=== PATIENT | female | born 1960 | race Caucasian/White ===

== ENCOUNTER 2017-03-21 12:06 | Inpatient (IN) ==
--- NOTE | 2017-03-21 10:17 | Discharge Summary ---
<Lucrecia Chaudhary E - Last Filed: 03/21/17 10:14> Date of Encounter: 03/21/17 - Discharge Diagnosis (1) Arthritis of left knee Priority: Primary Status: Acute (2) Hypertension Priority: Secondary Status: Chronic Qualifiers: Hypertension type: essential hypertension Qualified Code(s): I10 - Essential (primary) hypertension (3) Generalized anxiety disorder Priority: Secondary Status: Chronic (4) Depression Priority: Secondary Status: Chronic Qualifiers: Depression Type: unspecified Qualified Code(s): F32.9 - Major depressive disorder, single episode, unspecified (5) COPD (chronic obstructive pulmonary disease) Priority: Secondary Status: Chronic Qualifiers: COPD type: unspecified COPD Qualified Code(s): J44.9 - Chronic obstructive pulmonary disease, unspecified (6) Tobacco use Priority: Secondary Status: Chronic (7) History of intravenous drug use in remission Priority: Secondary Status: Chronic (8) Familial hyperlipidemia Priority: Secondary Status: Chronic - Discharge Medications Home Medications: Albuterol Sulfate [Albuterol Inhaler] 2 puff IH Q4HR PRN 03/21/17 [History] Amitriptyline [Elavil] 25 mg PO BID 03/21/17 [History] Aspirin Enteric Coated [Aspirin EC] 325 mg PO DAILY #30 tablet. 03/21/17 [Rx] Lisinopril [Zestril] 20 mg PO BID 03/21/17 [History] OxyCODONE Immed Rel [Roxicodone 5 MG] 5 - 10 mg PO Q6HR PRN #40 tablet 03/21/17 [Rx] Allergies/Adverse Reactions: Allergies Penicillins [PCN] Allergy (Verified 03/21/17 13:12) Hives lovastatin Adverse Reaction (Mild, Verified 03/21/17 13:20) "URINARY PROBLEMS" acetaminophen [From Vicodin] Adverse Reaction (Verified 03/21/17 13:22) Itching atorvastatin Adverse Reaction (Verified 03/21/17 13:20) Headache budesonide [From Symbicort] Adverse Reaction (Verified 03/21/17 13:20) Difficulty Breathing citalopram [From Celexa] Adverse Reaction (Verified 03/21/17 13:20) Anxiety Formoterol [From Symbicort] Adverse Reaction (Verified 03/21/17 13:20) Difficulty Breathing hydrocodone [From Vicodin] Adverse Reaction (Verified 03/21/17 13:22) Itching Primary care physician: Lou Wynne CNP - Patient Status Disposition: Home, Self-Care Condition: Good - Discharge Instructions Follow Up With: Lou Wynne CNP [Primary Care Provider] - - Hospital Course Hospital course: Ms. Bell is a 56 year old female - Time Spent with Patient Total time spent providing and/or coordinating discharge services: <Valdo Santoro - Last Filed: 03/22/17 06:46> Date of Encounter: 03/22/17 Time of Encounter: 06:46 - Discharge Diagnosis (1) Arthritis of left knee Priority: Primary Status: Acute (2) Hypertension Priority: Secondary Status: Chronic Qualifiers: Hypertension type: essential hypertension Qualified Code(s): I10 - Essential (primary) hypertension (3) Depression Priority: Secondary Status: Chronic Qualifiers: Depression Type: unspecified Qualified Code(s): F32.9 - Major depressive disorder, single episode, unspecified (4) COPD (chronic obstructive pulmonary disease) Priority: Secondary Status: Chronic Qualifiers: COPD type: unspecified COPD Qualified Code(s): J44.9 - Chronic obstructive pulmonary disease, unspecified (5) Tobacco use Priority: Secondary Status: Chronic (6) History of intravenous drug use in remission Priority: Secondary Status: Chronic (7) Familial hyperlipidemia Priority: Secondary Status: Chronic Primary care physician: Lou Wynne CNP - Patient Status Functional capacity at discharge: uses cane/walker Overall status at discharge: patient is progressing back to baseline - Hospital Course Hospital course: Ms. Bell is a 56 year old female Patient was seen this morning doing well without complaints. Afebrile vital signs stable. Operative extremity: Neurovascularly intact Dressing clean dry and intact Calves nontender Assessment and plan: Continue with postoperative care The patient had an uneventful postoperative course. They received antibiotics and physical therapy and were discharged in stable condition. There will follow -up in the office in 2 weeks. Aspirin DVT prophylaxis - Time Spent with Patient Total time spent providing and/or coordinating discharge services:
--- NOTE | 2017-03-21 12:14 | History & Physical Report ---
Date of Encounter: 03/21/17 Time of Encounter: 12:14 24 Hour HP Update - Instructions Instructions: If the History and Physical is less than 30 days old and was completed prior to A.M. admission and or procedure and has NOT been updated on calendar day of procedure please complete this update prior to performing procedure. - Update Patient reports changes in Medical Condition: No Changes in examination, assessment, or condition: No Changes in Medication: No Preop tests/diagnostics Reviewed: Yes Surgery Remains Indicated: Yes Consent for Planned Operative Procedure(s) Verified: Yes - Pre-Operative Checklist Preoperative Checklist Indicated: No Prophylactic Antibiotic Ordered: Yes Is VTE Prophylaxis Indicated?: Yes
[2017-03-21] MEDS ORDERED: Lidocaine -MPF 1% 2 ML VIAL ID ONE (12:23)
[2017-03-21] MEDS ORDERED: Clindamycin 900 MG/50 ML 900 MG/50 ML IV.SOLN IVPB ONE (12:23)
[2017-03-21] MEDS ORDERED: Albuterol 2.5 MG/3 ML NEBULIZER IH ONE (12:23)
[2017-03-21] MEDS ORDERED: Albuterol 2.5 MG/3 ML NEBULIZER ONE (12:28)
[2017-03-21] MEDS ORDERED: Ringers Solution, Lactated 1,000 ML IVC SCH ×2 (12:30→16:44)
--- NOTE | 2017-03-21 13:06 | Anesthesia Evaluation PreOp ---
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 03/21/17 [Rx] OxyCODONE Immed Rel [Roxicodone 5 MG] 5 - 10 mg PO Q6HR PRN #40 tablet 03/21/17 [Rx] Allergies Penicillins [PCN] Allergy (Verified 12/06/16 08:55) Hives - Meds/Allergy Pre-op Review Medications Reviewed: Yes Allergies Reviewed: Yes Beta Blockers on Current Med List: No Anesthesia Results - Labs Laboratory Tests 03/10/17 03/10/17 03/16/17 13:54 13:54 13:32 Hgb 13.5 Hct 41.1 Plt Count 235 PT 11.5 INR 1.1 APTT 32.2 Sodium 137 Potassium 4.0 Creatinine 0.99 - Imaging EKG: report reviewed (sr) Anesthesia Exam O2 Sat Height 1.65 m Height 1.65 m Height 1.65 m Weight 67.132 kg Weight 67.132 kg Weight 67.132 kg O2 Sat by Pulse Oximetry 97 O2 Sat by Pulse Oximetry 97 O2 Sat by Pulse Oximetry 92 Vital Signs Temp Pulse Resp BP Pulse Ox 99.1 F 92 16 155/82 92 03/21/17 12:34 03/21/17 12:34 03/21/17 12:34 03/21/17 12:34 03/21/17 12:34 Height: 1.65 Weight: 67 NPO (# of Hours): >8 - HEENT Pupil (Motor): Pupils equal, EOMI Mallampati: II Teeth: Edentulous Oral Opening: Greater than 3 - 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
[2017-03-21] MEDS ORDERED: *HR* Midazolam HCl 2 MG/2 ML VIAL ONE (13:25)
[2017-03-21] MEDS ORDERED: *HR* Propofol 200 MG/20 ML VIAL IVP ONE (13:25)
[2017-03-21] MEDS ORDERED: *HR* FentaNYL (PF) 100 MCG/2 ML VIAL ONE ×2 (13:25→14:50)
[2017-03-21] MEDS ORDERED: Ondansetron 4 MG/2 ML VIAL IVP PRN ×2 (13:47→16:44)
[2017-03-21] MEDS ORDERED: Dexamethasone 4 MG/ML VIAL ONE (13:53)
[2017-03-21] MEDS ORDERED: Ondansetron 4 MG/2 ML VIAL ONE (13:53)
[2017-03-21] MEDS ORDERED: Lidocaine -MPF 2% 2 ML VIAL ONE (13:53)
[2017-03-21] MEDS ORDERED: ROPIVACAINE HCL/PF 0.5% 30 ML VIAL ONE (14:01)
--- NOTE | 2017-03-21 14:30 | Anesthesia Procedures ---
Date of Encounter: 03/21/17 Time of Encounter: 14:31 Procedures: Anesthesia - Nerve Block Procedure Date: 03/21/17 Time: 14:28 Allergies/Adv Reactions: Allergies Penicillins [PCN] Allergy (Verified 03/21/17 13:12) Hives lovastatin Adverse Reaction (Mild, Verified 03/21/17 13:20) "URINARY PROBLEMS" acetaminophen [From Vicodin] Adverse Reaction (Verified 03/21/17 13:22) Itching atorvastatin Adverse Reaction (Verified 03/21/17 13:20) Headache budesonide [From Symbicort] Adverse Reaction (Verified 03/21/17 13:20) Difficulty Breathing citalopram [From Celexa] Adverse Reaction (Verified 03/21/17 13:20) Anxiety Formoterol [From Symbicort] Adverse Reaction (Verified 03/21/17 13:20) Difficulty Breathing hydrocodone [From Vicodin] Adverse Reaction (Verified 03/21/17 13:22) Itching Pre-op Diagnosis: oa left knee Surgical Procedure: left total knee Checklist: Correct Patient Identifier, Correct procedure, History checked Correct side: Left Blood Thinner: No Monitor Applied: EKG, BP, Pulse Oximetry Supplemental Oxygen via Nasal Cannula (L/min): 2 Sedation: Versed (mg): 2 Sedation: Fentanyl (mcg): 100 Indication: Post Op Analgesia Pre-op Neuro Deficits: No Block Type: Femoral (30cc 0.5% ropivicaine), Other (iPACK 20cc 0.25% bupivicaine ) Catheter placed: No Sterile Technique: Yes Ultrasound used: Yes Anatomy identified: Yes Visual spread of Local: Yes Neuro Stimulation: Yes Nerve Stimulator Range: 0.2 - 0.4 mA Blood on Needle Aspiration: No Smooth Injection of Local: Yes Pain with Injection of Local: No Prep: Chlorhexadine Needle: 22 x 50 mm Stimuplex (femoral), 21 x 100 mm Stimuplex (ipack) Local: 0.25% Bupivicaine w/Clonidine 20 mcg/cc, Ropivacaine Volume (cc): 50 Number of Attempts: 1 Complications: None/effective block Comments: peripheral nerve block for postoperative pain relief per dr duncan's orders
--- NOTE | 2017-03-21 15:11 | Orthopedic Operative Note ---
Date of procedure: 03/21/17 Pre-op diagnosis: Left knee arthritis Post-op diagnosis: same Procedure: Procedure: Left Total knee replacement Estimated blood loss: 350 cc Hardware: Arthrex Femur: 6 Tibia: 5 PS insert: 16 Patella: 34 Exam Under anesthesia: Varus alignment full flexion full extension no instability Procedural Notes: Grade 4 arthritic changes medial compartment grade 3 arthritic changes patellofemoral joint. Operative procedure: The patient was brought to the operating room and placed on the operating room table. After general anesthesia was administered the operative knee was examined. Findings were noted in the exam under anesthesia. The operative extremity was prepped and draped in sterile surgical fashion. The patient received IV antibiotics prior to skin incision. A standard midline incision was made centered over the patella. The incision was made through the skin and subcutaneous tissue. A medial parapatellar tendon approach was performed. Care was taken to preserve tissue along the medial aspect of the patella. And to protect the patella tendon. The deep MCL was released off the medial tibia. The infra patella fat pad was excised. Knee was brought into flexion. Patient noted to have grade 4 arthritic changes medial compartment grade 3 arthritic changes patellofemoral joint. The entry hole was made for the intramedullary femoral guide. The guide was seated in 6 degrees of valgus. Anterior cut was made followed by the distal cut. The ACL the PCL the medial and the lateral menisci were excised. The tibia was subluxed forward. The entry hole was made for the intramedullary tibial guide. Guide was seated to resect 2 mm off the more abnormal side. The knee was brought into flexion the distal femur was sized and a 6. The femoral guide was seated, the anterior cut was made followed by the posterior condylar cut, followed by the chamfer cuts. The finishing guide was seated the box cut was made and the lug holes were drilled. The tibia was sized a 5, the tibial tray was seated and prepared with the large drill followed by the fin cutter. Trial reduction revealed full extension no varus valgus instability with the appropriate 16 PS Manju. The patella was everted and cut was made at the level of the insertion of the quadriceps and patella tendon. The patella was sized 34 the guide was seated and the lug holes are drilled. Trial reduction revealed excellent patella tracking. All trial components were removed all bony surfaces were irrigated. The tibia was cemented first followed by the femur. The 16 PS Manju was seated and the knee was brought into full extension. The patella was cemented and held in place with the patellar holding clamp. After the cement had hardened, the knee sat for 2 minutes with a Betadine saline solution. The knee was then irrigated out with 2 L of pulse irrigation. The extensor mechanism was closed with #2 FiberWire suture and #2 PDS suture. The subcutaneous tissue was then irrigated and closed deep with #1 PDS suture superficially with 0 PDS suture and skin was closed with skin cecil. The patient was then placed in a sterile dressing and a postoperative brace extubated and transferred to recovery room in stable condition. Anesthesia: BLANCA Surgeon: Valdo Santoro Handyman: Lucrecia Chaudhary Condition: stable Disposition: PACU
[2017-03-21] MEDS ORDERED: *HR* HYDROmorphone 2 MG/ML SYRINGE ONE (15:25)
[2017-03-21] MEDS: *HR* HYDROmorphone (PF) 1 MG/ML SYRINGE IVP PRN ×3 (16:00→16:20)
[2017-03-21] MEDS ORDERED: *HR* Labetalol 20 MG/4 ML SYRINGE IVP ONE (16:16)
[2017-03-21 16:17] LABS: Hematocrit 37.3 % (35.3-44.9); Hemoglobin 12.2 g/dL (11.5-15.4)
--- NOTE | 2017-03-21 16:43 | Anesthesia Evaluation Post Op ---
Date of Encounter: 03/21/17 Time of Encounter: 16:42 - Vital Signs Vital Signs: Vital Signs/O2 Sat, Most Current Temp Pulse Resp BP Pulse Ox 99.2 F 77 14 157/93 92 03/21/17 16:34 03/21/17 16:34 03/21/17 16:34 03/21/17 16:34 03/21/17 16:34 - Lungs Lungs: Clear Ascult./Percussion - Airway Airway: Non-obstructed - Cardiovascular Regular Rate - Mental Status Mental Status: Alert & Oriented, Answers Appropriately - Pain Pain Scale: 4 Pain Scale used: Numeric (1 - 10) - Nausea Vomiting Nausea Vomiting: Not Present - Hydration Hydration: Tolerates oral liquids, Has not voided - Discharge PostOp Status: Transfer Patient to floor
[2017-03-21] MEDS ORDERED: Clindamycin 900 MG/50 ML 900 MG/50 ML IV.SOLN IVPB SCH (16:44)
[2017-03-21] MEDS ORDERED: *HR* OxyCODONE Immed Rel 5 MG TABLET PO PRN (16:44)
[2017-03-21] MEDS ORDERED: Naloxone 0.4 MG/ML INJ IVP PRN (16:44)
[2017-03-21] MEDS ORDERED: Temazepam 15 MG CAPSULE PO PRN (16:44)
[2017-03-21] MEDS ORDERED: Sennosides 8.6 MG TABLET PO PRN (16:44)
[2017-03-21] MEDS ORDERED: MOM Conc 10 ML UD.LIQ PO PRN (16:44)
[2017-03-21] MEDS: *HR* OxyCODONE Immed Rel 5 MG TABLET PO PRN ×2 (17:10→22:03)
[2017-03-21] MEDS: *HR* Enoxaparin 30 MG/0.3 ML SYRINGE SQ SCH (17:38)
[2017-03-21] MEDS ORDERED: *HR* Enoxaparin 30 MG/0.3 ML SYRINGE SQ SCH (18:00)
[2017-03-21] MEDS: Lisinopril 20 MG TABLET PO SCH (20:27)
[2017-03-21] MEDS: Clindamycin 900 MG/50 ML 900 MG/50 ML IV.SOLN IVPB SCH (20:28)
[2017-03-22] MEDS: *HR* OxyCODONE Immed Rel 5 MG TABLET PO PRN ×3 (02:24→10:55)
[2017-03-22] MEDS: Clindamycin 900 MG/50 ML 900 MG/50 ML IV.SOLN IVPB SCH (05:26)
[2017-03-22 05:45] LABS: Hematocrit 34.5 % (35.3-44.9); Hemoglobin 11.3 g/dL (11.5-15.4)
[2017-03-22 05:59] LABS: Calcium 9.5 mg/dL (8.6-10.8); Potassium 4.4 mEq/L (3.5-4.5)
[2017-03-22] MEDS: *HR* Enoxaparin 30 MG/0.3 ML SYRINGE SQ SCH (06:19)
[2017-03-22] MEDS ORDERED: Mag Hydrox/Al Hydrox/Simeth 30 ML UDC PO PRN (06:29)
--- NOTE | 2017-03-22 06:47 | Orthopedics Progress Note ---
Date of Encounter: 03/22/17 Time of Encounter: 06:47 - Assessment and Plan (1) Arthritis of left knee Current Visit: Yes Status: Acute (2) Hypertension Current Visit: Yes Status: Chronic Qualifiers: Hypertension type: essential hypertension Qualified Code(s): I10 - Essential (primary) hypertension (3) Depression Current Visit: Yes Status: Chronic Qualifiers: Depression Type: unspecified Qualified Code(s): F32.9 - Major depressive disorder, single episode, unspecified (4) COPD (chronic obstructive pulmonary disease) Current Visit: Yes Status: Chronic Qualifiers: COPD type: unspecified COPD Qualified Code(s): J44.9 - Chronic obstructive pulmonary disease, unspecified (5) Tobacco use Current Visit: Yes Status: Chronic (6) History of intravenous drug use in remission Current Visit: Yes Status: Chronic (7) Familial hyperlipidemia Current Visit: Yes Status: Chronic Subjective Interval history: Patient was seen this morning doing well without complaints. Afebrile vital signs stable. Operative extremity: Neurovascularly intact Dressing clean dry and intact Calves nontender Assessment and plan: Continue with postoperative care Hematocrit 34 discharged today Objective Vital signs: Vital Signs Temp Pulse Resp BP Pulse Ox 03/22/17 04:46 98 03/22/17 03:55 98.1 F 91 17 152/71 95 03/22/17 00:06 98.2 F 85 17 142/53 94 03/21/17 20:42 98.3 F 74 16 135/69 98 03/21/17 19:26 98.1 F 78 14 158/74 100 03/21/17 18:10 98.0 F 78 16 172/76 98 03/21/17 17:23 98.0 F 85 16 157/76 98 03/21/17 16:56 98.5 F 81 16 171/83 98 03/21/17 16:44 99.2 F 79 14 167/82 96 03/21/17 16:34 99.2 F 77 14 157/93 92 03/21/17 16:24 77 14 163/76 97 03/21/17 16:14 99.2 F 104 16 187/100 98 03/21/17 16:04 117 16 198/104 99 03/21/17 15:54 95 12 148/79 98 03/21/17 15:44 99 F 88 12 113/65 100 03/21/17 14:25 98 18 143/92 99 03/21/17 14:24 79 18 174/88 97 03/21/17 12:42 18 155/82 97 03/21/17 12:40 99.1 F 92 18 155/82 97 03/21/17 12:34 99.1 F 92 16 155/82 92 Intake and Output 03/21/17 03/21/17 03/22/17 15:59 23:59 07:59 Intake Total 250 / 250 240 / 240 Output Total 350 / 350 Balance -350 / -350 250 / 250 240 / 240 Intake: IV Fluids 50 / 50 0 / 0 Cleocin 900 MG/50 ML 900 50 / 50 0 / 0 mg In 50 ml @ 50 mls/hr IVPB Q8H SOPHIA Rx#: [id number] Oral 200 / 200 240 / 240 Output: Estimated Blood Loss 350 / 350 Other: # Voids 1 1 Weight 67.132 kg - Labs CBC & BMP: 03/22/17 05:32 03/22/17 05:32 Labs: Abnormal lab results Hgb 11.3 g/dL (11.5-15.4) L 03/22/17 05:32 Hct 34.5 % (35.3-44.9) L 03/22/17 05:32 Sodium 134 mEq/L (136-145) L 03/22/17 05:32 Creatinine 1.15 mg/dL (0.57-1.11) H 03/22/17 05:32 Est GFR ( Amer) 59 (> 60) L 03/22/17 05:32 Est GFR (Non-Af Amer) 49 (> 60) L 03/22/17 05:32 Glucose 132 mg/dL (70-99) H 03/22/17 05:32 - VTE Documentation of Mechanical Device: Venous foot pump, device Consult Discharge Plan - Plan Referrals: Lou Wynne, [employer] [Primary Care Provider] -
[2017-03-22 07:01] VITALS: BP 112/65
[2017-03-22] MEDS: Lisinopril 20 MG TABLET PO SCH (09:23)
== END 2017-03-22 12:25 | disposition home or self-care (01) | DRG 470 ==
LOC: SAMDAY 12:06 → 3NENU 16:48
PROVIDERS: ADMIT Orthopaedic Surgery; ATTEND Orthopaedic Surgery

== ENCOUNTER 2018-11-28 19:56 | Inpatient (IN) ==
[2018-11-28] MEDS ORDERED: Nitroglycerin 0.4 MG TAB.SUBL SL PRN (20:09)
[2018-11-28] MEDS ORDERED: Aspirin 325 MG TABLET PO ONE (20:09)
--- NOTE | 2018-11-28 20:13 | Emergency Department Note ---
Disposition Clinical Impression: NSTEMI (non-ST elevated myocardial infarction) Disposition: Admitted As Inpatient Condition: Undetermined Referrals: Nancy Beck CNP [Primary Care Provider] - Forms: ED Satisfaction Letter General Adult HPI - General Chief complaint: ED Chest Pain Stated complaint: chest pain Time Seen by Provider: 11/28/18 20:04 Source: patient, EMS Limitations: no limitations - History of Present Illness Pain Scale: 3 - Related Data Home Medications Medication Instructions Recorded Confirmed Albuterol Sulfate [Albuterol 2 puff IH Q4HR PRN 03/21/17 03/21/17 Inhaler] Amitriptyline [Elavil] 25 mg PO BID 03/21/17 03/21/17 RX: Lisinopril [Zestril] 20 mg PO BID 03/21/17 03/21/17 Previous Rx's Medication Instructions Recorded RX: Aspirin Enteric Coated 325 mg PO DAILY #30 tablet. 03/21/17 [Aspirin EC] RX: OxyCODONE Immed Rel 5 - 10 mg PO Q6HR PRN #40 tablet 03/21/17 [Roxicodone 5 MG] Ibuprofen [Motrin] 800 mg PO Q8HR #30 tablet 05/07/18 Tramadol HCl [Ultram] 50 mg PO TID PRN 3 Days #9 tab 05/07/18 Allergies Allergy/AdvReac Type Severity Reaction Status Date / Time aspirin [ASA] Allergy Intermediate Hives Verified 03/22/17 10:47 Penicillins [PCN] Allergy Hives Verified 03/21/17 13:12 lovastatin AdvReac Mild "URINARY Verified 03/21/17 13:20 PROBLEMS" acetaminophen [From Vicodin] AdvReac Itching Verified 03/21/17 13:22 atorvastatin AdvReac Headache Verified 03/21/17 13:20 budesonide [From Symbicort] AdvReac Difficulty Verified 03/21/17 13:20 Breathing citalopram [From Celexa] AdvReac Anxiety Verified 03/21/17 13:20 Formoterol [From Symbicort] AdvReac Difficulty Verified 03/21/17 13:20 Breathing hydrocodone [From Vicodin] AdvReac Itching Verified 03/21/17 13:22 Past Medical History - Past Medical History Medical history: Reports: arthritis, COPD, hyperlipidemia, hypertension Surgical history: Reports: non-contributory Psychiatric history: Reports: anxiety, depression - Social History Smoking Status: Current every day smoker Smokeless Tobacco Status: No Alcohol use: Reports: occasionally Drug use: Reports: marijuana, IV Drug Use Physical Exam - General Limitations: no limitations General appearance: alert, in no apparent distress Course Vital Signs Temperature 99.1 F 11/28/18 20:04 Pulse Rate 97 11/28/18 20:04 Respiratory Rate 18 11/28/18 20:04 Blood Pressure 170/102 11/28/18 20:04 O2 Sat by Pulse Oximetry 96 11/28/18 20:04 Temperature 99.1 F 11/28/18 20:04 Pulse Rate 75 11/28/18 23:19 Respiratory Rate 16 11/28/18 23:19 Blood Pressure 148/82 11/28/18 23:19 O2 Sat by Pulse Oximetry 97 11/28/18 23:19 Oxygen Delivery Oxygen Delivery Room Air Medical Decision Making - Lab Data Result diagrams: 11/28/18 23:04 11/28/18 20:05 Lab Results 11/28/18 11/28/18 11/28/18 Range/Units 20:05 20:05 20:05 WBC 9.2 (4.3-11.1) K/mcL RBC 3.94 (3.82-4.97) M/mcL Hgb 13.0 (11.5-15.4) g/dL Hct 38.6 (35.3-44.9) % MCV 98.0 (83.0-100.0) fL MCH 33.0 (28.0-33.3) pg MCHC 33.7 (31.6-35.5) g/dL RDW 13.4 (11.5-14.5) % Plt Count 217 (140-400) K/mcL MPV 10.4 (9.4-12.4) fL Immature Gran % 0.2 (0-4) % Seg Neutrophils % 58.3 % Lymphocytes % 31.5 % Monocytes % 6.4 % Eosinophils % 2.8 % Basophils % 0.8 % Neutrophils # 5.3 (1.6-8.9) K/mcL Lymphocytes # 2.9 (0.6-4.6) K/mcL Monocytes # 0.6 (0.0-1.3) K/mcL Eosinophils # 0.3 (0.0-0.6) K/mcL Basophils # 0.1 (0.0-0.2) K/mcL PT 11.2 (9.4-12.1) Seconds INR 1.0 APTT 35.9 (26.0-36.0) Seconds Heparin Anti-Xa, Unfract (0.30-0.70) IU/mL Sodium 138 (136-145) mEq/L Potassium 4.2 (3.5-5.1) mEq/L Chloride 101 (98-107) mEq/L Carbon Dioxide 29 (23-29) mEq/L BUN 12 (6-20) mg/dL Creatinine 0.85 (0.60-1.20) mg/dL Est GFR ( Amer) > 60 (> 60) Est GFR (Non-Af Amer) > 60 (> 60) BUN/Creatinine Ratio 14 (6-26) Glucose 113 H (70-105) mg/dL Calculated Osmolality 287 (280-300) Calcium 9.5 (8.6-10.3) mg/dL Total Bilirubin 0.2 L (0.3-1.0) mg/dL AST 11 L (13-39) Units/L ALT 8 (7-52) Units/L Alkaline Phosphatase 81 (34-104) Units/L Troponin I < 0.03 (< 0.04) ng/mL Serum Total Protein 6.8 (6.4-8.9) g/dL Albumin 3.9 (3.5-5.7) g/dL Globulin 2.9 (2.4-3.5) g/dL Albumin/Globulin Ratio 1.3 (1.1-2.2) 11/28/18 11/28/18 11/28/18 Range/Units 21:52 23:04 23:04 WBC 8.3 (4.3-11.1) K/mcL RBC 3.72 L (3.82-4.97) M/mcL Hgb 12.2 (11.5-15.4) g/dL Hct 36.7 (35.3-44.9) % MCV 98.7 (83.0-100.0) fL MCH 32.8 (28.0-33.3) pg MCHC 33.2 (31.6-35.5) g/dL RDW 13.4 (11.5-14.5) % Plt Count 228 (140-400) K/mcL MPV 10.1 (9.4-12.4) fL Immature Gran % (0-4) % Seg Neutrophils % % Lymphocytes % % Monocytes % % Eosinophils % % Basophils % % Neutrophils # (1.6-8.9) K/mcL Lymphocytes # (0.6-4.6) K/mcL Monocytes # (0.0-1.3) K/mcL Eosinophils # (0.0-0.6) K/mcL Basophils # (0.0-0.2) K/mcL PT 11.1 (9.4-12.1) Seconds INR 1.0 APTT (26.0-36.0) Seconds Heparin Anti-Xa, Unfract 0.02 L (0.30-0.70) IU/mL Sodium (136-145) mEq/L Potassium (3.5-5.1) mEq/L Chloride (98-107) mEq/L Carbon Dioxide (23-29) mEq/L BUN (6-20) mg/dL Creatinine (0.60-1.20) mg/dL Est GFR ( Amer) (> 60) Est GFR (Non-Af Amer) (> 60) BUN/Creatinine Ratio (6-26) Glucose (70-105) mg/dL Calculated Osmolality (280-300) Calcium (8.6-10.3) mg/dL Total Bilirubin (0.3-1.0) mg/dL AST (13-39) Units/L ALT (7-52) Units/L Alkaline Phosphatase (34-104) Units/L Troponin I 0.07 H* (< 0.04) ng/mL Serum Total Protein (6.4-8.9) g/dL Albumin (3.5-5.7) g/dL Globulin (2.4-3.5) g/dL Albumin/Globulin Ratio (1.1-2.2) Critical Care Time Critical Care Time: Yes Total Critical Care Time: 30 Attestation: The high probability of a clinically significant, sudden or life threatening deterioration of the [] system(s) required my full and direct attention, intervention and personal management. The aggregate critical care time was [] minutes. This time is in addition to time spent performing reported procedures but includes the following: [] Data Review and interpretation [] Patient assessment and monitoring of vital signs [] Documentation [] Medication orders and management Attestation Statement - Attestation Attestation: I examined this patient and my medical decision-making was reviewed with the Resident Physician. I agree with the documented findings, disposition and treatment plan as described except to the extent set forth below. [id number] time provided Patient presents by EMS with chest discomfort that started 2 hours prior to arrival. She states it feels like a heaviness across her chest. She denies having any knowledge of previous coronary artery disease. This was associated with nausea and vomiting and unrelieved by antacids. The patient has a nonproductive cough. Otherwise appears in no acute distress. Initial ECG reviewed by me. 08:54: Test results discussed with patient. I discussed the possibility of patient being admitted for telemetry, serial cardiac enzymes, further chest pain evaluation. She states she does not want to be admitted. She does agree at the very least to stay for a repeat troponin measured from the emergency department
[2018-11-28 20:21] LABS: Basophils # 0.1 K/mcL (0.0-0.2); Basophils % 0.8 %; Eosinophils # 0.3 K/mcL (0.0-0.6); Eosinophils % 2.8 %; Hematocrit 38.6 % (35.3-44.9); Immature Granulocytes % 0.2 % (0-4); Lymphocytes # 2.9 K/mcL (0.6-4.6); Lymphocytes % 31.5 %; Mean Corpuscular HGB Conc 33.7 g/dL (31.6-35.5); Mean Platelet Volume 10.4 fL (9.4-12.4); Monocytes # 0.6 K/mcL (0.0-1.3); Monocytes % 6.4 %; Neutrophils # 5.3 K/mcL (1.6-8.9); Platelet Count 217 K/mcL (140-400); Red Blood Count 3.94 M/mcL (3.82-4.97); Red Cell Distribution Width 13.4 % (11.5-14.5); Segmented Neutrophils % 58.3 %
[2018-11-28 20:34] LABS: Prothrombin Time 11.2 Seconds (9.4-12.1)
[2018-11-28 20:37] LABS: Activated Partial Thrombo Time 35.9 Seconds (26.0-36.0)
[2018-11-28 20:42] LABS: Alanine Aminotransferase 8 Units/L (7-52); Albumin 3.9 g/dL (3.5-5.7); Albumin/Globulin Ratio 1.3 (1.1-2.2); Alkaline Phosphatase 81 Units/L (34-104); Aspartate Amino Transferase 11 Units/L (13-39); BUN/Creatinine Ratio 14 (6-26); Bilirubin,Total 0.2 mg/dL (0.3-1.0); Blood Urea Nitrogen 12 mg/dL (6-20); Calcium 9.5 mg/dL (8.6-10.3); Carbon Dioxide 29 mEq/L (23-29); Chloride 101 mEq/L (98-107); Globulin 2.9 g/dL (2.4-3.5); Glucose 113 mg/dL (70-105); Osmolality,Calculated 287 (280-300); Potassium 4.2 mEq/L (3.5-5.1); Sodium 138 mEq/L (136-145); Total Protein 6.8 g/dL (6.4-8.9); Troponin I < 0.03 ng/mL (< 0.04); eGFR For Non-African Americans > 60 (> 60)
--- NOTE | 2018-11-28 20:51 | Emergency Department Note ---
Disposition Clinical Impression: NSTEMI (non-ST elevated myocardial infarction) Disposition: Admitted As Inpatient Condition: Undetermined Referrals: Nancy Beck CNP [Primary Care Provider] - Forms: ED Satisfaction Letter Time of Disposition: 23:29 Chest Pain HPI - General Chief Complaint: ED Chest Pain Stated Complaint: chest pain Time Seen by Provider: 11/28/18 20:04 Source: patient, EMS Mode of arrival: EMS Limitations: no limitations Vital Signs Reviewed: Yes Nursing Notes Reviewed: Yes - History of Present Illness HPI Narrative: 58-year-old female smoker arrives to the emergency department with complaint of epigastric pain, retrosternal chest pain that she described as a burning sensation. The patient states that this started a few hours ago she was noted to be hypertensive in the 200s. The patient states that is not unusual for her. Patient states she had some associated shortness of breath. Subsided to come to the emergency department time after [place] and omeprazole [id number] did not help her symptoms Patient arrives to the emergency department no acute distress. Patient is mildly tachycardic but is mildly anxious on evaluation. EKG does demonstrate some findings concerning for left ventricular hypertrophy. Patient states that her chest pain is subsided this time. She denies any other complaints. Blood pressure within normal limits. She is tachycardic. She has no other complaints, unilateral leg swelling, recent surgeries or immobilizations, history DVT or PE. Severity scale (1-10): 4 - Related Data Home Medications Medication Instructions Recorded Confirmed Albuterol Sulfate [Albuterol 2 puff IH Q4HR PRN 03/21/17 03/21/17 Inhaler] Amitriptyline [Elavil] 25 mg PO BID 03/21/17 03/21/17 Lisinopril [Zestril] 20 mg PO BID 03/21/17 03/21/17 Previous Rx's Medication Instructions Recorded Aspirin Enteric Coated [Aspirin EC] 325 mg PO DAILY #30 tablet. 03/21/17 OxyCODONE Immed Rel [Roxicodone 5 5 - 10 mg PO Q6HR PRN #40 tablet 03/21/17 MG] Ibuprofen [Motrin] 800 mg PO Q8HR #30 tablet 05/07/18 Tramadol HCl [Ultram] 50 mg PO TID PRN 3 Days #9 tab 05/07/18 Allergies Allergy/AdvReac Type Severity Reaction Status Date / Time aspirin [ASA] Allergy Intermediate Hives Verified 03/22/17 10:47 Penicillins [PCN] Allergy Hives Verified 03/21/17 13:12 lovastatin AdvReac Mild "URINARY Verified 03/21/17 13:20 PROBLEMS" acetaminophen [From Vicodin] AdvReac Itching Verified 03/21/17 13:22 atorvastatin AdvReac Headache Verified 03/21/17 13:20 budesonide [From Symbicort] AdvReac Difficulty Verified 03/21/17 13:20 Breathing citalopram [From Celexa] AdvReac Anxiety Verified 03/21/17 13:20 Formoterol [From Symbicort] AdvReac Difficulty Verified 03/21/17 13:20 Breathing hydrocodone [From Vicodin] AdvReac Itching Verified 03/21/17 13:22 All systems ED: reviewed and negative except as stated. Constitutional: Reports: weakness. Denies: fever, chills ENT ED: Denies: dysphagia Cardiovascular: Reports: chest pain, dyspnea on exertion. Denies: edema, syncope Respiratory: Reports: dyspnea. Denies: cough, wheezes, sputum production Gastrointestinal: Reports: nausea. Denies: abdominal pain, vomiting Genitourinary: Denies: urgency, dysuria Musculoskeletal: Denies: back pain Integumentary: Denies: rash Neurological: Denies: headache Chest Pain PMH - Past Medical History Medical history: Reports: arthritis, COPD, hyperlipidemia, hypertension Surgical history: Reports: non-contributory Psychiatric history: Reports: anxiety, depression - Social History Smoking Status: Current every day smoker Alcohol use: Reports: occasionally Drug use: Reports: marijuana, IV Drug Use Physical Exam - General Limitations: no limitations General appearance: alert, in no apparent distress - Head Head exam: atraumatic, normocephalic, normal inspection - Eye Eye exam: Present: normal appearance, PERRL, EOMI - ENT ENT exam: normal exam, normal oropharynx, mucous membranes moist - Neck Neck exam: Present: normal inspection, full ROM, trachea midline - Chest Chest inspection: Present: normal inspection, symmetric chest wall rise - Respiratory Respiratory exam: Present: normal lung sounds bilaterally. Absent: respiratory distress - Cardiovascular Cardiovascular exam: Present: regular rate, normal rhythm, normal heart sounds - Abdominal Exam Abdominal exam: Present: soft, Non-Tender. Absent: tenderness, distention, guarding, rebound, rigidity - Extremities Exam Extremities exam: Present: normal inspection, full ROM. Absent: tenderness, pedal edema - Neurological Exam Neurological exam: Present: alert - Skin Skin exam: Present: warm, dry, intact, normal color Course - Reevaluation(s) Reevaluation #1: Patient's initial troponin is negative. The patient is adamant that she not be admitted to the hospital. We are concerned about the patient's hypertension and extensive medical history but the patient is willing to receive a delta troponin here in the emergency department. We will perform her 3 hour troponin. Patient made aware and agree to plan. No further questions concerns noted. Time: 20:55 Vital Signs Temperature 99.1 F 11/28/18 20:04 Pulse Rate 97 11/28/18 20:04 Respiratory Rate 18 11/28/18 20:04 Blood Pressure 170/102 11/28/18 20:04 O2 Sat by Pulse Oximetry 96 11/28/18 20:04 Temperature 99.1 F 11/28/18 20:04 Pulse Rate 75 11/28/18 23:19 Respiratory Rate 16 11/28/18 23:19 Blood Pressure 148/82 11/28/18 23:19 O2 Sat by Pulse Oximetry 97 11/28/18 23:19 Oxygen Delivery Oxygen Delivery Room Air Chest Pain - MDM Narrative Medical decision making narrative: Patient's workup in the emergency department initially dentures no acute process. Given the patient's concern for ACS, the patient was initially advised that she stay in the hospital for an ACS rule out. The patient denied at that time. We did a delta troponin here in the emergency department which revealed an elevated troponin concern for in STEMI. The patient will be placed on heparin drip and admitted to the hospital at this time for further workup and care. Patient wears plan. No further questions concerns noted. Patient denies any melena or hematochezia. We will but the patient to hospitalist. Accepted by Dr. Cooper. - Lab Data Lab results reviewed: Yes I reviewed the patient's lab results. Result diagrams: 11/28/18 23:04 11/28/18 20:05 Lab Results 11/28/18 11/28/18 11/28/18 Range/Units 20:05 20:05 20:05 WBC 9.2 (4.3-11.1) K/mcL RBC 3.94 (3.82-4.97) M/mcL Hgb 13.0 (11.5-15.4) g/dL Hct 38.6 (35.3-44.9) % MCV 98.0 (83.0-100.0) fL MCH 33.0 (28.0-33.3) pg MCHC 33.7 (31.6-35.5) g/dL RDW 13.4 (11.5-14.5) % Plt Count 217 (140-400) K/mcL MPV 10.4 (9.4-12.4) fL Immature Gran % 0.2 (0-4) % Seg Neutrophils % 58.3 % Lymphocytes % 31.5 % Monocytes % 6.4 % Eosinophils % 2.8 % Basophils % 0.8 % Neutrophils # 5.3 (1.6-8.9) K/mcL Lymphocytes # 2.9 (0.6-4.6) K/mcL Monocytes # 0.6 (0.0-1.3) K/mcL Eosinophils # 0.3 (0.0-0.6) K/mcL Basophils # 0.1 (0.0-0.2) K/mcL PT 11.2 (9.4-12.1) Seconds INR 1.0 APTT 35.9 (26.0-36.0) Seconds Heparin Anti-Xa, Unfract (0.30-0.70) IU/mL Sodium 138 (136-145) mEq/L Potassium 4.2 (3.5-5.1) mEq/L Chloride 101 (98-107) mEq/L Carbon Dioxide 29 (23-29) mEq/L BUN 12 (6-20) mg/dL Creatinine 0.85 (0.60-1.20) mg/dL Est GFR ( Amer) > 60 (> 60) Est GFR (Non-Af Amer) > 60 (> 60) BUN/Creatinine Ratio 14 (6-26) Glucose 113 H (70-105) mg/dL Calculated Osmolality 287 (280-300) Calcium 9.5 (8.6-10.3) mg/dL Total Bilirubin 0.2 L (0.3-1.0) mg/dL AST 11 L (13-39) Units/L ALT 8 (7-52) Units/L Alkaline Phosphatase 81 (34-104) Units/L Troponin I < 0.03 (< 0.04) ng/mL Serum Total Protein 6.8 (6.4-8.9) g/dL Albumin 3.9 (3.5-5.7) g/dL Globulin 2.9 (2.4-3.5) g/dL Albumin/Globulin Ratio 1.3 (1.1-2.2) 11/28/18 11/28/18 11/28/18 Range/Units 21:52 23:04 23:04 WBC 8.3 (4.3-11.1) K/mcL RBC 3.72 L (3.82-4.97) M/mcL Hgb 12.2 (11.5-15.4) g/dL Hct 36.7 (35.3-44.9) % MCV 98.7 (83.0-100.0) fL MCH 32.8 (28.0-33.3) pg MCHC 33.2 (31.6-35.5) g/dL RDW 13.4 (11.5-14.5) % Plt Count 228 (140-400) K/mcL MPV 10.1 (9.4-12.4) fL Immature Gran % (0-4) % Seg Neutrophils % % Lymphocytes % % Monocytes % % Eosinophils % % Basophils % % Neutrophils # (1.6-8.9) K/mcL Lymphocytes # (0.6-4.6) K/mcL Monocytes # (0.0-1.3) K/mcL Eosinophils # (0.0-0.6) K/mcL Basophils # (0.0-0.2) K/mcL PT (9.4-12.1) Seconds INR APTT (26.0-36.0) Seconds Heparin Anti-Xa, Unfract 0.02 L (0.30-0.70) IU/mL Sodium (136-145) mEq/L Potassium (3.5-5.1) mEq/L Chloride (98-107) mEq/L Carbon Dioxide (23-29) mEq/L BUN (6-20) mg/dL Creatinine (0.60-1.20) mg/dL Est GFR ( Amer) (> 60) Est GFR (Non-Af Amer) (> 60) BUN/Creatinine Ratio (6-26) Glucose (70-105) mg/dL Calculated Osmolality (280-300) Calcium (8.6-10.3) mg/dL Total Bilirubin (0.3-1.0) mg/dL AST (13-39) Units/L ALT (7-52) Units/L Alkaline Phosphatase (34-104) Units/L Troponin I 0.07 H* (< 0.04) ng/mL Serum Total Protein (6.4-8.9) g/dL Albumin (3.5-5.7) g/dL Globulin (2.4-3.5) g/dL Albumin/Globulin Ratio (1.1-2.2) - Radiology Data Radiology results reviewed: Yes I reviewed the patient's radiology results. Chest X-Ray 11/28/18 20:08 IMPRESSION: Mild interstitial edema suspected. No acute confluent infiltrate. Underlying emphysema. D/ / Artur Chou MD / Artur Chou MD Interpreting Provider: Artur Chou MD - EKG Data EKG attestation: Yes I reviewed and interpreted this EKG. EKG results narrative: Heart rate 101 beats for minute. Sinus tachycardia with LVH. No ST elevation but mild ST depression noted in 1, 2, 3, aVF, the 5 V6.
[2018-11-28] MEDS ORDERED: *HR* Heparin 5,000 UNIT/ML VIAL IVP ONE (22:43)
[2018-11-28] MEDS ORDERED: *HR* Heparin 5,000 UNIT/ML VIAL IVP PRN ×2 (22:43)
[2018-11-28] MEDS ORDERED: Heparin 25,000 UNIT/500 ML D5W 25,000 UNIT/500 ML BAG IVC SCH (22:45)
[2018-11-28 23:16] LABS: Hematocrit 36.7 % (35.3-44.9); Hemoglobin 12.2 g/dL (11.5-15.4); Mean Corpuscular HGB Conc 33.2 g/dL (31.6-35.5); Mean Corpuscular Hemoglobin 32.8 pg (28.0-33.3); Mean Corpuscular Volume 98.7 fL (83.0-100.0); Mean Platelet Volume 10.1 fL (9.4-12.4); Platelet Count 228 K/mcL (140-400); Red Blood Count 3.72 M/mcL (3.82-4.97); Red Cell Distribution Width 13.4 % (11.5-14.5)
[2018-11-28 23:23] LABS: Heparin anti-factor XA UFH 0.02 IU/mL (0.30-0.70)
[2018-11-28 23:24] LABS: Prothrombin Time 11.1 Seconds (9.4-12.1)
[2018-11-29] MEDS ORDERED: Naloxone 0.4 MG/ML INJ IVP PRN (02:40)
--- NOTE | 2018-11-29 02:55 | Internal Med History&Physical ---
Date of Encounter: 11/29/18 Time of Encounter: 02:00 Internal Medicine - H&P: HPI Chief complaint: Chest Pain Admitted From: Home Plans for Post Hospital Care: Home History of present illness: Ms. Oliva is a 58 year old female with past medical history significant for hypertension, hyperlipidemia, tobacco abuse, marijuana abuse, COPD, arthritis, acid reflux, PTSD, bipolar disorder, anxiety, and depression who presents for complaints of 10/10 burning/squeezing chest pain radiating to her neck and down her left arm. Pain was associated with shortness of breath, diaphoresis, nausea, and vomiting. Initially thought she was having her typical acid reflux symptoms but pain was unrelieved with queta seltzer nor prevacid and pain continued to increase. Also states her blood pressure was elevated at home with systolic above 200 on home blood pressure machine. Pain was completely relieved following nitro x3 in ER. Remains pain free at time of my assessment. ER reported EKG as sinus tachycardia with ST depression. Initial troponin in ER negative, but repeat 2 hours later had increased to 0.07, and so a heparin drip was initiated. Patient reports history of normal stress test completed in November 2016 but denies any history of echocardiogram. Checks blood pressures regularly at home which she states systolic has been averaging in 120's. Follows regularly with PCP and is due for routine follow up in February. Chart review shows history of IV drug abuse, but patient denies any current or past drug use besides marijuana. Past Med Surg Social Fam HX - Past Medical History Medical history: arthritis, COPD, hyperlipidemia, hypertension, other Additional medical history: acid reflux Psychiatric history: anxiety, bipolar, depression, PTSD - Past Surgical History Surgical History: non-contributory - Social History Smoking Status: Current every day smoker Smokeless Tobacco Status: No Alcohol use: occasionally Drug use: marijuana, IV Drug Use Internal Medicine - H&P: Meds Albuterol Sulfate [Albuterol Inhaler] 2 puff IH Q4HR PRN 03/21/17 [History] Amitriptyline [Elavil] 25 mg PO BID 03/21/17 [History] Aspirin Enteric Coated [Aspirin EC] 325 mg PO DAILY #30 tablet. 03/21/17 [Rx] Lisinopril [Zestril] 20 mg PO BID 03/21/17 [History] OxyCODONE Immed Rel [Roxicodone 5 MG] 5 - 10 mg PO Q6HR PRN #40 tablet 03/21/17 [Rx] Ibuprofen [Motrin] 800 mg PO Q8HR #30 tablet 05/07/18 [Rx] Tramadol HCl [Ultram] 50 mg PO TID PRN 3 Days #9 tab 05/07/18 [Rx] Allergy/AdvReac Type Severity Reaction Status Date / Time aspirin [ASA] Allergy Intermediate Hives Verified 03/22/17 10:47 Penicillins [PCN] Allergy Hives Verified 03/21/17 13:12 lovastatin AdvReac Mild "URINARY Verified 03/21/17 13:20 PROBLEMS" acetaminophen [From Vicodin] AdvReac Itching Verified 03/21/17 13:22 atorvastatin AdvReac Headache Verified 03/21/17 13:20 budesonide [From Symbicort] AdvReac Difficulty Verified 03/21/17 13:20 Breathing citalopram [From Celexa] AdvReac Anxiety Verified 03/21/17 13:20 Formoterol [From Symbicort] AdvReac Difficulty Verified 03/21/17 13:20 Breathing hydrocodone [From Vicodin] AdvReac Itching Verified 03/21/17 13:22 All Systems PM: A 10-system review of systems was performed and is negative for pertinent findings except as documented above in the HPI. - Constitutional Vitals: Temp Pulse Resp BP Pulse Ox 99.1 F 65 18 144/71 99 11/28/18 20:04 11/29/18 01:48 11/29/18 02:06 11/29/18 02:06 11/29/18 01:48 Exam: General: Alert and oriented. Skin:Normal color, no rash, no lesions. HEENT:Pupils equal, round and reactive. Cardiovascular:Heart sounds distant, no rubs, murmurs or gallops noted. No JVD. Pulse regular. Lungs:Breath sounds decreased, no wheezes or crackles. Abdomen:Soft, non-tender, no rigidity. Extremities:No deformity, no edema or tenderness, no joint swelling or clubbing. Neurological:Normal cognition and motor skills. Pulses:Carotid and radial pulses normal +2. Rest of the physical exam is non contributory. Internal Med - H&P Results - Labs CBC & Chem 7: 11/28/18 23:04 11/28/18 20:05 Labs: Short CBC 11/28/18 11/28/18 Range/Units 20:05 23:04 WBC 9.2 8.3 (4.3-11.1) K/mcL Hgb 13.0 12.2 (11.5-15.4) g/dL Hct 38.6 36.7 (35.3-44.9) % Plt Count 217 228 (140-400) K/mcL Neutrophils # 5.3 (1.6-8.9) K/mcL BMP 11/28/18 20:05 Sodium 138 Potassium 4.2 Chloride 101 Carbon Dioxide 29 BUN 12 Creatinine 0.85 Glucose 113 H Calcium 9.5 Cardiac Enzymes 11/28/18 11/28/18 Range/Units 20:05 21:52 Troponin I < 0.03 0.07 H* (< 0.04) ng/mL Liver Function 11/28/18 Range/Units 20:05 Total Bilirubin 0.2 L (0.3-1.0) mg/dL AST 11 L (13-39) Units/L ALT 8 (7-52) Units/L Alkaline Phosphatase 81 (34-104) Units/L Albumin 3.9 (3.5-5.7) g/dL - Impressions ITS Impressions Chest X-Ray 11/28/18 20:08 IMPRESSION: Mild interstitial edema suspected. No acute confluent infiltrate. Underlying emphysema. D/ / Artur Chou MD / Artur Chou MD Interpreting Provider: Artur Chou MD - Assessment and plan (1) NSTEMI (non-ST elevated myocardial infarction) Current Visit: Yes Status: Acute Assessment and plan: Heparin drip started in ER, will continue same. 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 NPO. Cardiology consult ordered, will need called in a.m. Echocardiogram ordered. Troponins trending. (2) Chest pain Current Visit: Yes Status: Acute Assessment and plan: Plan as stated above. Qualifiers: Chest pain type: unspecified Qualified Code(s): R07.9 - Chest pain, unspecified (3) Depression with anxiety Current Visit: Yes Status: Chronic Assessment and plan: Continue home medications once verified. (4) COPD (chronic obstructive pulmonary disease) Current Visit: No Status: Chronic Assessment and plan: Continue home medications once verified. Qualifiers: COPD type: unspecified COPD Qualified Code(s): J44.9 - Chronic obstructive pulmonary disease, unspecified (5) Hypertension Current Visit: No Status: Chronic Assessment and plan: Continue home medications once verified. Qualifiers: Hypertension type: essential hypertension Qualified Code(s): I10 - Essential (primary) hypertension (6) Tobacco use Current Visit: No Status: Chronic Assessment and plan: Cessation encouraged. Currently denies nicotine patch. - Time Spent With Patient Total time spent is greater than 50% in coordination of care (as documented) at patient's floor/unit and/or counseling patient:
[2018-11-29 05:42] LABS: Basophils % 0.6 %; Eosinophils # 0.3 K/mcL (0.0-0.6); Eosinophils % 4.4 %; Hematocrit 39.7 % (35.3-44.9); Immature Granulocytes % 0.2 % (0-4); Lymphocytes % 45.8 %; Mean Corpuscular HGB Conc 32.7 g/dL (31.6-35.5); Mean Corpuscular Hemoglobin 32.7 pg (28.0-33.3); Mean Corpuscular Volume 99.7 fL (83.0-100.0); Mean Platelet Volume 10.4 fL (9.4-12.4); Monocytes # 0.5 K/mcL (0.0-1.3); Monocytes % 6.9 %; Neutrophils # 2.8 K/mcL (1.6-8.9); Platelet Count 207 K/mcL (140-400); Red Blood Count 3.98 M/mcL (3.82-4.97); Red Cell Distribution Width 13.6 % (11.5-14.5); Segmented Neutrophils % 42.1 %
[2018-11-29 06:00] LABS: BUN/Creatinine Ratio 14 (6-26); Blood Urea Nitrogen 11 mg/dL (6-20); Calcium 9.4 mg/dL (8.6-10.3); Carbon Dioxide 28 mEq/L (23-29); Chloride 106 mEq/L (98-107); Glucose 94 mg/dL (70-105); Osmolality,Calculated 289 (280-300); Potassium 3.9 mEq/L (3.5-5.1); Sodium 140 mEq/L (136-145); eGFR For Non-African Americans > 60 (> 60)
--- NOTE | 2018-11-29 10:26 | Cardiology Consult Note ---
<Griffin Espinoza R - Last Filed: 11/29/18 10:43> Date of Encounter: 11/29/18 Time of Encounter: 10:24 Assessment and Plan (1) NSTEMI (non-ST elevated myocardial infarction) Current Visit: Yes Status: Acute Presented with chest pain radiating to left neck and shoulder, associated dyspnea, diaphoresis, n/v. Risk factors for CAD include HTN, HLD, tobacco abuse, family hx. Hx lists IVDU, pt denies. Admits to marijuana--check drug tox. Initial troponin negative, then 0.07, 0.28. ECG LVH with reciprocal changes--changes compared to stress test ECGs 11/2016. On heparin gtt. Recommend ASA, BB. Allergy listed to ASA, but takes ASA at home, enteric coated. Intolerant to statin drugs. Check TTE to evaluate structure and function. Recommend LHC. R/B/A discussed. Pt is considering. (2) Hypertension Current Visit: Yes Status: Chronic BP currently not at goal. Reports BP was 200s/100s prior to admission. Add BB. Continue to monitor and adjust as necessary. Qualifiers: Hypertension type: essential hypertension Qualified Code(s): I10 - Essential (primary) hypertension (3) Tobacco use Current Visit: Yes Status: Chronic Smoking cessation counseling given. Discussion w patient/family: The assessment and plan as outlined above was discussed with the patient and/or family members who expressed understanding and agreement. All questions were answered. Thank you for involving us in the care of your patient. Please call with any questions. I will discuss all the above with Dr. Álvarez and make changes as necessary. History of Present Illness Consult date: 11/29/18 Consult reason: Elevated troponin Chief complaint: chest pain History of present illness: Ms. Oliva is a 58 year old female with PMH of hypertension, hyperlipidemia, tobacco abuse, marijuana abuse, COPD, arthritis, acid reflux, PTSD, bipolar disorder, anxiety, and depression who presents for complaints of 10/10 burning/squeezing chest pain radiating to her neck and down her left arm. Pain was associated with shortness of breath, diaphoresis, nausea, and vomiting. Initially thought she was having her typical acid reflux symptoms but pain was unrelieved with queta seltzer nor prevacid and pain continued to increase. Repo rts BP was 200s/100s at home. Chest pain relieved following nitro x3 in ER. Currently chest pain free. Troponin negative, then 0.07, 0.28. Cardiology consulted for further recs. ECG changes compared to ECG during stress test 11/2016. Prior CV testing: Nuclear stress test 11/2016: Gated EF 50%, perfusion imaging negative for ischemia or infarct. Past Med Surg Social Fam HX - Past Medical History Medical history: arthritis, COPD, hyperlipidemia, hypertension, other Additional medical history: acid reflux Psychiatric history: anxiety, bipolar, depression, PTSD - Past Surgical History Surgical History: non-contributory - Social History Smoking Status: Current every day smoker Smokeless Tobacco Status: No Alcohol use: occasionally Drug use: marijuana, IV Drug Use - Family History Mother Age at : 77 Cause of : suicide Medications and Allergies Albuterol Sulfate [Albuterol Inhaler] 2 puff IH Q4HR PRN 03/21/17 [History] Amitriptyline [Elavil] 25 mg PO BID 03/21/17 [History] Aspirin Enteric Coated [Aspirin EC] 325 mg PO DAILY #30 tablet. 03/21/17 [Rx] Lisinopril [Zestril] 20 mg PO BID 03/21/17 [History] OxyCODONE Immed Rel [Roxicodone 5 MG] 5 - 10 mg PO Q6HR PRN #40 tablet 03/21/17 [Rx] Ibuprofen [Motrin] 800 mg PO Q8HR #30 tablet 05/07/18 [Rx] Tramadol HCl [Ultram] 50 mg PO TID PRN 3 Days #9 tab 05/07/18 [Rx] Allergy/AdvReac Type Severity Reaction Status Date / Time aspirin [ASA] Allergy Intermediate Hives Verified 03/22/17 10:47 Penicillins [PCN] Allergy Hives Verified 03/21/17 13:12 lovastatin AdvReac Mild "URINARY Verified 03/21/17 13:20 PROBLEMS" acetaminophen [From Vicodin] AdvReac Itching Verified 03/21/17 13:22 atorvastatin AdvReac Headache Verified 03/21/17 13:20 budesonide [From Symbicort] AdvReac Difficulty Verified 03/21/17 13:20 Breathing citalopram [From Celexa] AdvReac Anxiety Verified 03/21/17 13:20 Formoterol [From Symbicort] AdvReac Difficulty Verified 03/21/17 13:20 Breathing hydrocodone [From Vicodin] AdvReac Itching Verified 03/21/17 13:22 All Systems Review: The remainder of the systems were reviewed and are negative - Cardiovascular Cardiovascular: as per HPI, chest pain at rest, chest pain with exertion, dyspnea at rest, dyspnea on exertion, radiating jaw, neck or arm pain - Respiratory Respiratory: dyspnea - Gastrointestinal Gastrointestinal: nausea Physical Examination Vital Signs, Last 4 Hours Temp Pulse Resp BP Pulse Ox 11/29/18 08:58 98.5 F 68 17 163/84 95 Vital Signs Temp Pulse Resp BP Pulse Ox 11/29/18 08:58 98.5 F 68 17 163/84 95 11/29/18 04:59 97.6 F 63 14 169/84 96 11/29/18 02:45 97.5 F L 63 18 146/73 94 11/29/18 02:06 18 144/71 11/29/18 01:48 65 18 144/71 99 11/28/18 23:19 75 16 148/82 97 11/28/18 22:10 78 18 133/67 98 11/28/18 21:10 82 18 141/72 98 11/28/18 20:30 97 18 150/89 95 11/28/18 20:24 93 18 179/87 96 11/28/18 20:04 99.1 F 97 18 170/102 96 Intake and Output 11/28/18 11/29/18 11/29/18 23:59 07:59 15:59 Intake Total 99.5 / 99.5 Balance 99.5 / 99.5 Intake: IV Fluids 99.5 / 99.5 Heparin 25,000 UNIT/500 ML D5W 99.5 / 99.5 25,000 unit In 500 ml @ 12 UNIT /KG/HR 13.934 mls/hr IVC .Q24H [facility] Rx#:[id number] Other: Weight 58.06 kg 58.6 kg Patient Weight 11/29/18 23:59 Weight 58.6 kg General: Conversant, No Apparent Distress HEENT: Atraumatic, Normocephaly, Mucus Membranes Moist Neck: No JVD, Normal carotid pulses Cardiac: Reg Rate and Rhythm, Normal S1 and S2, No Murmur Lungs: Other (mild wheezes) Neuro: Alert and responsive, No focal deficits noted Abdomen: Soft, Non-Tender Skin: No rashes noted on visualized skin Musculoskeletal: No Chest Wall Tenderness Extremities: No Clubbing, No Cyanosis, No Edema, Normal Pulses Results 11/29/18 05:22 11/29/18 05:22 Lab Results 11/28/18 11/28/18 11/28/18 20:05 20:05 20:05 WBC 9.2 Hgb 13.0 Hct 38.6 Plt Count 217 INR 1.0 APTT 35.9 Sodium 138 Potassium 4.2 Chloride 101 Carbon Dioxide 29 BUN 12 Creatinine 0.85 Glucose 113 H Calcium 9.5 Total Bilirubin 0.2 L AST 11 L ALT 8 Alkaline Phosphatase 81 Troponin I < 0.03 11/28/18 11/28/18 11/28/18 21:52 23:04 23:04 WBC 8.3 Hgb 12.2 Hct 36.7 Plt Count 228 INR 1.0 APTT Sodium Potassium Chloride Carbon Dioxide BUN Creatinine Glucose Calcium Total Bilirubin AST ALT Alkaline Phosphatase Troponin I 0.07 H* 11/29/18 11/29/18 11/29/18 05:22 05:22 05:22 WBC 6.6 Hgb 13.0 Hct 39.7 Plt Count 207 INR APTT Sodium 140 Potassium 3.9 Chloride 106 Carbon Dioxide 28 BUN 11 Creatinine 0.78 Glucose 94 Calcium 9.4 Total Bilirubin AST ALT Alkaline Phosphatase Troponin I 0.28 H* Short CBC 11/29/18 11/28/18 11/28/18 Range/Units 05:22 23:04 20:05 WBC 6.6 8.3 9.2 (4.3-11.1) K/mcL Hgb 13.0 12.2 13.0 (11.5-15.4) g/dL Hct 39.7 36.7 38.6 (35.3-44.9) % Plt Count 207 228 217 (140-400) K/mcL Neutrophils # 2.8 5.3 (1.6-8.9) K/mcL BMP 11/29/18 11/28/18 Range/Units 05:22 20:05 Sodium 140 138 (136-145) mEq/L Potassium 3.9 4.2 (3.5-5.1) mEq/L Chloride 106 101 (98-107) mEq/L Carbon Dioxide 28 29 (23-29) mEq/L BUN 11 12 (6-20) mg/dL Creatinine 0.78 0.85 (0.60-1.20) mg/dL Glucose 94 113 H (70-105) mg/dL Calcium 9.4 9.5 (8.6-10.3) mg/dL Cardiac Enzymes 11/29/18 11/28/18 11/28/18 Range/Units 05:22 21:52 20:05 Troponin I 0.28 H* 0.07 H* < 0.03 (< 0.04) ng/mL Liver Function 11/28/18 Range/Units 20:05 Total Bilirubin 0.2 L (0.3-1.0) mg/dL AST 11 L (13-39) Units/L ALT 8 (7-52) Units/L Alkaline Phosphatase 81 (34-104) Units/L Albumin 3.9 (3.5-5.7) g/dL Impressions Chest X-Ray 11/28/18 20:08 IMPRESSION: Mild interstitial edema suspected. No acute confluent infiltrate. Underlying emphysema. D/ / Artur Chou MD / Artur Chou MD Interpreting Provider: Artur Chou MD Active Medications Heparin Sodium (Porcine) (Heparin) 3,500 unit 60 unit/kg (3500 unit) IVP Q6HR PRN PRN Reason: SEE COMMENTS Stop: 05/30/19 22:44 Heparin Sodium (Porcine) (Heparin) 1,700 unit 30 unit/kg (1700 unit) IVP Q6H PRN PRN Reason: SEE COMMENTS Stop: 05/30/19 22:44 Last Admin: 11/29/18 06:47 Dose: 1,700 unit Heparin Sodium/Dextrose (Heparin 25,000 Unit/500 Ml D5w) 25,000 unit in 500 mls @ 13.934 mls/hr IVC .Q24H [facility]; Protocol Stop: 05/30/19 22:46 Last Titration: 11/29/18 06:48 Dose: 14.04 unit/kg/hr, 16.3 mls/hr Naloxone HCl (Narcan) 0.4 mg IVP Q2MIN PRN PRN Reason: SEE COMMENTS Stop: 05/31/19 02:41 Nitroglycerin (Nitroglycerin) 0.4 mg SL Q5MIN PRN PRN Reason: Chest Pain Stop: 05/30/19 20:10 Last Admin: 11/28/18 20:22 Dose: 0.4 mg - Imaging and Cardiology Stress Test: report reviewed - EKG Interpretation EKG results cardiology: personally reviewed (LVH with reciprocal changes) Consult Discharge Plan - Plan Referrals: Nancy Beck FACILITY WORKER [Primary Care Provider] - <PreetiTuesday A - Last Filed: 11/29/18 14:11> Date of Encounter: 11/29/18 - Attending Attestation I have personally performed a face to face evaluation on this patient. I have reviewed and agree with the documented findings and care plan as documented by the FACILITY WORKER. History and Exam by me shows: 58 y/o F current every day smoker, presenting with NSTEMI. Needs a cath. She states that she is only allergic to adult aspirin and not baby aspirin. For cardiac cath today. Urged to quit smoking. Thanks, Tuesday MD Preeti FACC Assessment and Plan Discussion w patient/family: The assessment and plan as outlined above was discussed with the patient and/or family members who expressed understanding and agreement. All questions were answered. Thank you for involving us in the care of your patient. Please call with any questions. History of Present Illness History of present illness: Ms. Oliva is a 58 year old female All Systems Review: The remainder of the systems were reviewed and are negative Results 11/29/18 05:22 11/29/18 05:22 Lab Results 11/28/18 11/28/18 11/28/18 20:05 20:05 20:05 WBC 9.2 Hgb 13.0 Hct 38.6 Plt Count 217 INR 1.0 APTT 35.9 Sodium 138 Potassium 4.2 Chloride 101 Carbon Dioxide 29 BUN 12 Creatinine 0.85 Glucose 113 H Calcium 9.5 Total Bilirubin 0.2 L AST 11 L ALT 8 Alkaline Phosphatase 81 Troponin I < 0.03 11/28/18 11/28/18 11/28/18 21:52 23:04 23:04 WBC 8.3 Hgb 12.2 Hct 36.7 Plt Count 228 INR 1.0 APTT Sodium Potassium Chloride Carbon Dioxide BUN Creatinine Glucose Calcium Total Bilirubin AST ALT Alkaline Phosphatase Troponin I 0.07 H* 11/29/18 11/29/18 11/29/18 05:22 05:22 05:22 WBC 6.6 Hgb 13.0 Hct 39.7 Plt Count 207 INR APTT Sodium 140 Potassium 3.9 Chloride 106 Carbon Dioxide 28 BUN 11 Creatinine 0.78 Glucose 94 Calcium 9.4 Total Bilirubin AST ALT Alkaline Phosphatase Troponin I 0.28 H* 11/29/18 11:13 WBC Hgb Hct Plt Count INR APTT Sodium Potassium Chloride Carbon Dioxide BUN Creatinine Glucose Calcium Total Bilirubin AST ALT Alkaline Phosphatase Troponin I 0.22 H*
[2018-11-29] MEDS ORDERED: Lisinopril 20 MG TABLET PO SCH (10:45)
--- NOTE | 2018-11-29 10:50 | Event Note ---
Date of Encounter: 11/29/18 Time of Encounter: 10:48 patient seen and examined. Hemodynamically stable.patient was initially reluctant for cath but is now agreeable after long discussion with me and Rn.We will get bakc to cards and hope she can go to cath today. on IV heparin gtt. Rest as per admit H&P
[2018-11-29] MEDS ORDERED: Aspirin Enteric Coated 81 MG Tablet PO SCH (11:00)
[2018-11-29 13:23] LABS: Amphetamine Screen,Urine Negative ng/mL (Cutoff=1000); Barbiturate Screen,Urine Negative ng/mL (Cutoff=200); Benzodiazepines Screen,Urine Positive ng/mL (Cutoff=200); Cannabinoid Screen,Urine Positive ng/mL (Cutoff = 50); Cocaine Screen,Urine Negative ng/mL (Cutoff= 300); Opiate Screen,Urine Negative ng/mL (Cutoff=300); Phencyclidine Screen,Urine Negative ng/mL (Cutoff=25)
[2018-11-29] MEDS ORDERED: 0.9 % Sodium Chloride 1,000 ML ONE ×2 (14:00→14:05)
[2018-11-29] MEDS ORDERED: ISOVUE-370 200 ML INFUS..BTL ONE (14:00)
[2018-11-29] MEDS ORDERED: Nitroglycerin 1,000 MCG/10 ML VIAL IV ONE (14:00)
[2018-11-29] MEDS ORDERED: Heparin 1,000 UNITS/500 mL 500 ML ONE (14:00)
[2018-11-29] MEDS ORDERED: *HR* Heparin 10,000 UNIT/10 ML VIAL ONE (14:00)
[2018-11-29] MEDS ORDERED: Verapamil 5 MG/2 ML VIAL ONE (14:01)
[2018-11-29] MEDS ORDERED: *HR* Midazolam HCl 2 MG/2 ML VIAL ONE (14:05)
[2018-11-29] MEDS ORDERED: *HR* FentaNYL (PF) 100 MCG/2 ML VIAL ONE (14:05)
--- NOTE | 2018-11-29 15:28 | Pre-Sedation Evaluation ---
Pre-sedation evaluation - Pre-sedation checklist Date of procedure: 11/29/18 Procedure: heart cath Recent Vitals: Last Vital Signs Temp 98.5 F 11/29/18 08:58 Pulse 68 11/29/18 08:58 Resp 17 11/29/18 08:58 BP 163/84 11/29/18 08:58 Pulse Ox 95 11/29/18 08:58 H&P (including ROS) documented in medical record: Yes Previous reaction to sedatives/anesthetics: No Dietary Status: NPO after Midnight Dentition: dentures removed ASA Classification *see protocol: CLASS II-Mild systemic disease Plan of Care: Pt appropriate candidate for procedure/moderate/conscious sedation, Risks/benefits of procedure/sedation discussed w/ patient/family Cardiac Registry (Cardio Only) - Functional Capacity Functional Capacity: >=4 METS with symptoms - Clincal Frailty Scale Clinical Frailty Scale: Managing Well
--- NOTE | 2018-11-29 17:04 | Cardiothoracic Consult Note ---
Date of Encounter: 11/29/18 Time of Encounter: 16:57 Assessment and Plan (1) NSTEMI (non-ST elevated myocardial infarction) Current Visit: Yes Status: Acute The assessment and plan as outlined above was discussed with the patient and/or family members who expressed understanding and agreement. All questions were answered. The patient has left main disease with triple-vessel disease. The right coronary artery is critical with a 99% blocked. It does have poor outflow, but appears graftable. The patient is presently pain-free on a heparin drip. I discussed possible coronary artery bypass grafting with her. The procedure, its risks, benefits and alternatives were explained. I did recommend that she be done prior to discharge. She states that she is absolutely going home tomorrow. She wants to discuss this with her who she just last Tuesday and her children. She does state that she is willing to come back and have open he art surgery next week. At this point she has no questions. I again strongly recommended she stay and have surgery prior to discharge, but she is insisting on going home tomorrow. She is at high risk for repeat myocardial infarction or sudden . - History of Present Illness History of present illness: Ms. Oliva is a 58 year old female The patient is a 58-year-old female who has been having angina and chest pain. She presented today with severe chest pain and had a positive troponin of 0.22. Echocardiogram revealed mild to moderate aortic regurgitation. Cardiac catheterization revealed an ejection fraction of 35% with a 50% left main lesion , a 60% LAD lesion, an 80% circumflex lesion and a 99% mid right coronary artery lesion. The distal right coronary artery is small and has poor outflow, but does look graftable. Past medical history is notable for COPD, hypertension, hyperlipidemia, depression and anxiety. No history of diabetes. Chest x-ray reveals interstitial edema. Her drug screen was positive for benzodiazepines and marijuana. She is on no blood thinners at home. Social history. She lives in [place] and just got last Tuesday. She is to smoke 3-1/2 packs of cigarettes per day but claims to be less than a half pack per day now. She does have COPD but does not use oxygen. She rarely drinks alcohol. Family history is positive for coronary artery disease. Review of systems is notable for left total knee and left hip surgery. No history of stroke or TIA. No history of saphenous vein varicosities or strippings. Past Med Surg Social Fam HX - Past Medical History Medical history: arthritis, COPD, hyperlipidemia, hypertension, other Additional medical history: acid reflux Psychiatric history: anxiety, bipolar, depression, PTSD - Past Surgical History Surgical History: non-contributory - Social History Smoking Status: Current every day smoker Smokeless Tobacco Status: No Alcohol use: occasionally Drug use: marijuana, IV Drug Use - Family History Mother Age at : 77 Cause of : suicide Medications and Allergies Albuterol Sulfate [Albuterol Inhaler] 2 puff IH Q4HR PRN 03/21/17 [History] Amitriptyline [Elavil] 25 mg PO BID 03/21/17 [History] Aspirin Enteric Coated [Aspirin EC] 325 mg PO DAILY #30 tablet. 03/21/17 [Rx] Lisinopril [Zestril] 20 mg PO BID 03/21/17 [History] OxyCODONE Immed Rel [Roxicodone 5 MG] 5 - 10 mg PO Q6HR PRN #40 tablet 03/21/17 [Rx] Ibuprofen [Motrin] 800 mg PO Q8HR #30 tablet 05/07/18 [Rx] Tramadol HCl [Ultram] 50 mg PO TID PRN 3 Days #9 tab 05/07/18 [Rx] Allergy/AdvReac Type Severity Reaction Status Date / Time aspirin [ASA] Allergy Intermediate Hives Verified 03/22/17 10:47 Penicillins [PCN] Allergy Hives Verified 03/21/17 13:12 lovastatin AdvReac Mild "URINARY Verified 03/21/17 13:20 PROBLEMS" acetaminophen [From Vicodin] AdvReac Itching Verified 03/21/17 13:22 atorvastatin AdvReac Headache Verified 03/21/17 13:20 budesonide [From Symbicort] AdvReac Difficulty Verified 03/21/17 13:20 Breathing citalopram [From Celexa] AdvReac Anxiety Verified 03/21/17 13:20 Formoterol [From Symbicort] AdvReac Difficulty Verified 03/21/17 13:20 Breathing hydrocodone [From Vicodin] AdvReac Itching Verified 03/21/17 13:22 All Systems Review: The remainder of the systems were reviewed and are negative Physical Examination Vital Signs, Last 4 Hours Temp Pulse Resp BP Pulse Ox 11/29/18 16:30 69 18 172/98 97 11/29/18 16:00 65 16 166/90 98 11/29/18 15:30 64 18 147/74 95 11/29/18 15:15 62 16 141/71 95 11/29/18 15:00 97.7 F 58 15 158/97 95 Pupils are equal, round and reactive to light and accommodation. She is edentulous. Neck is supple. Trachea in the midline. No thyromegaly or carotid bruits. Lungs are clear to percussion and auscultation. Chest x-ray reveals mi ld interstitial edema. Heart is in a regular rate and rhythm. No murmurs, gallops or rubs. Abdomen is benign. She is status post removal of her ovaries. No tenderness, rebound or guarding. Extremities without edema. No saphenous vein varicosities or strippings. Cranial nerves, motor and sensory intact. Results 11/29/18 05:22 11/29/18 05:22 Lab Results, Last 24 hours 11/28/18 11/28/18 11/28/18 20:05 20:05 20:05 WBC 9.2 Hgb 13.0 Hct 38.6 Plt Count 217 INR 1.0 APTT 35.9 Sodium 138 Potassium 4.2 Chloride 101 Carbon Dioxide 29 BUN 12 Creatinine 0.85 Glucose 113 H Calcium 9.5 Total Bilirubin 0.2 L AST 11 L ALT 8 Alkaline Phosphatase 81 Troponin I < 0.03 11/28/18 11/28/18 11/28/18 21:52 23:04 23:04 WBC 8.3 Hgb 12.2 Hct 36.7 Plt Count 228 INR 1.0 APTT Sodium Potassium Chloride Carbon Dioxide BUN Creatinine Glucose Calcium Total Bilirubin AST ALT Alkaline Phosphatase Troponin I 0.07 H* 11/29/18 11/29/18 11/29/18 05:22 05:22 05:22 WBC 6.6 Hgb 13.0 Hct 39.7 Plt Count 207 INR APTT Sodium 140 Potassium 3.9 Chloride 106 Carbon Dioxide 28 BUN 11 Creatinine 0.78 Glucose 94 Calcium 9.4 Total Bilirubin AST ALT Alkaline Phosphatase Troponin I 0.28 H* 11/29/18 11:13 WBC Hgb Hct Plt Count INR APTT Sodium Potassium Chloride Carbon Dioxide BUN Creatinine Glucose Calcium Total Bilirubin AST ALT Alkaline Phosphatase Troponin I 0.22 H* Consult Discharge Plan - Plan Referrals: Nancy Beck, JAMES [Primary Care Provider] -
[2018-11-29 17:11] VITALS: BP 173/81
--- NOTE | 2018-11-29 19:36 | Event Note ---
Date of Encounter: 11/29/18 Time of Encounter: 18:10 Received a page and spoke to RN taking care of the patient tat patient is absolutely adamant on leaving [facility] to go home. We reiterated to the patient that she is very high risk of cardiac mortality given her NSTEMI Severe Triple vessel disease. She was infact evaluated by CT Surgery short while ago but declined to stay. I have been informed that she has signed her AMA papers and left after having a clear understanding of her risks of doing so including . Of note, franca did want to sign out AMA right before she had her cath earlier in the day but agreed to stay for the cath atleast.
== END 2018-11-29 18:35 | disposition left against medical advice (07) | DRG 190 ==
LOC: 2SOUTHHOLD 19:56 → EMEROOARM 19:56 → 2SOUTHHOLD 11-29 02:17
PROVIDERS: ADMIT Family Medicine; ATTEND Family Medicine

== ENCOUNTER 2019-06-20 09:24 | Observation (INO) ==
--- NOTE | 2019-06-20 09:37 | Emergency Department Note ---
Disposition Clinical Impression: Acute exacerbation of chronic obstructive airways disease Congestive heart failure Qualifiers: Heart failure type: unspecified Heart failure chronicity: acute Qualified Code(s): I50.9 - Heart failure, unspecified Disposition: Admitted As Inpatient Condition: Fair Time of Disposition: 20:57 SOB HPI - General Stated Complaint: MISTY Time Seen by Provider: 06/20/19 09:36 Source: patient, family Mode of arrival: ambulatory Limitations: no limitations Nursing Notes Reviewed: Yes Vital Signs Reviewed: Yes - History of Present Illness 59-year-old female past medical history of 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 Patient states that she feels as though she has bronchitis. Patient is complaining of the worst headache of her life which began gradually over the course of 2 days. This is not a thunderclap headache. Patient has no lateralizing signs or unilateral weakness. Patient states that she does have some chest pain states she is on a baby aspirin per day but has not taken this medication this morning. The patient states she is unable to take an adult dose of aspirin as this causes her to feels her throat is tightening. Patient is agreeable to a 162 mg dose of baby aspirin at this time for cardiac prophylaxis. Patient will receive DuoNeb nebs and steroids for the management of likely COPD exacerbation. Upon my initial evaluation, my general impression is that the patient is awake, alert, oriented, engaged to conversation and answering questions appropriately without conversational dyspnea. There are no overt lateralizing signs, the patient is in mild distress due to dyspnea; their skin appears to be normal in color, they are not pale, not cyanotic, and not diaphoretic, they are sitting up in hospital bed interacting appropriately with environment. Pt Subjective Complaint: shortness of breath, chest pain Onset (ago): day(s) (3-4 days) Severity: moderate Consistency/Duration: constant, gradually worsening Improves with: oxygen, bronchodilators, medication Known history of: COPD Associated symptoms: Reports: chest pain, wheezing Treatment prior to arrival: bronchodilator (albuterol inhaler) Cough present: Yes Cough Description: Voluntary Cough Frequency: Intermittent Sputum production: No - Related Data Home oxygen amount: none Home Medications Medication Instructions Recorded Confirmed Aspirin [Lo-Dose Aspirin EC] 81 mg PO DAILY 06/20/19 06/20/19 Fish Oil 1,600 mg PO DAILY 06/20/19 06/20/19 Allergies Allergy/AdvReac Type Severity Reaction Status Date / Time aspirin [ASA] Allergy Intermediate Hives Verified 12/07/18 07:25 Penicillins [PCN] Allergy Hives Verified 12/07/18 07:25 lovastatin AdvReac Mild "URINARY Verified 12/07/18 07:25 PROBLEMS" acetaminophen [From Vicodin] AdvReac Itching Verified 12/07/18 07:25 atorvastatin AdvReac Headache Verified 12/07/18 07:25 budesonide [From Symbicort] AdvReac Difficulty Verified 12/07/18 07:25 Breathing citalopram [From Celexa] AdvReac Anxiety Verified 12/07/18 07:25 Formoterol [From Symbicort] AdvReac Difficulty Verified 12/07/18 07:25 Breathing hydrocodone [From Vicodin] AdvReac Itching Verified 12/07/18 07:25 Review of Systems: *See History of Present Illness for more detail Constitutional: Denies: fever, chills Cardiovascular: Admits: chest pain Respiratory: Admits: dyspnea, cough, denies: hemoptysis Gastrointestinal: Denies: abdominal pain, nausea, vomiting, diarrhea, constipation, hematemesis, melena, hematochezia Genitourinary: Denies: hematuria Musculoskeletal: Denies: back pain, neck pain Neurological: Admits: headache, weakness, lightheadedness/dizziness, denies: n umbness, paresthesias, difficulty with ambulation. Endocrine: Admits: fatigue All systems ED: reviewed and negative except as stated. Review of Systems: As Per HPI Past Medical History - Past Medical History Medical history: Reports: arthritis, COPD, GERD, hyperlipidemia, hypertension, myocardial infarction, other Surgical history: Reports: other Psychiatric history: Reports: anxiety, bipolar, depression, PTSD - Social History Smoking Status: Current every day smoker Smokeless Tobacco Status: No Alcohol use: Reports: occasionally Drug use: Reports: marijuana, IV Drug Use Physical Exam Constitutional: No acute distress, [id number], engaged to conversation, speech is fluid, answers questions appropriately Neuro: GCS 15, no overt focal neurological deficits Head: Atraumatic, normocephalic Eyes: Pupils equal, round and reactive to light, no scleral icterus, no conjunctival injection Neck: Trachea midline without deviation. Anterior neck is supple without swelling. *Chest: Symmetric chest wall rise *Heart: Cardiac rhythm is regular tachycardic rate with S1 and S2 , no S3 or S4 appreciated, no murmurs, gallops, rubs, or clicks. *Lungs: Diffuse wheezing noted bilaterally, with some accessory muscle use and prolonged expiratory phase. No rhonchi or stridor appreciated. Abdomen: Abdomen is flat, soft to palpation, normal bowel sounds. No abdominal bruit auscultated. Non-distended, non-rigid, no organomegaly, no ascites appreciated. No pulsatile mass, no tenderness or guarding to palpation in all four quadrants, no rebound Extremities: Normal capillary refill without evidence of pedal edema, joint swelling or erythema. Pulses/motor intact in all 4 extremities. Psychiatric exam: Patient displays a normal affect and mood for the environment. No overt signs of hallucination. Integumentary: warm, dry, intact, normal color. No rash, cyanosis, diaphoresis, erythema, or pallor. - General Limitations: no limitations General appearance: alert, in distress Course Course Narrative: DuoNeb nebs, steroids, 162 mg aspirin Basic labs, troponin, BNP, Lactic acid, troponin, EKG/old EKG, chest x-ray. - Reevaluation(s) Reevaluation #1: Patient with very little response to steroids and DuoNeb's given here in the ER. She is still experiencing difficulty breathing and is tachycardic in the 130s. This time I will do a CT angiogram of the patient's chest due to concern for possible occult pneumonia versus pulmonary embolism. The patient verbalizes understanding and agreement this plan. Vital Signs Temperature 99.3 F 06/20/19 09:30 Pulse Rate 123 06/20/19 09:30 Respiratory Rate 24 06/20/19 09:30 Blood Pressure 187/68 06/20/19 09:30 O2 Sat by Pulse Oximetry 94 06/20/19 09:30 Temperature 98.0 F 06/20/19 18:21 Pulse Rate 92 06/20/19 18:21 Respiratory Rate 20 06/20/19 20:12 Blood Pressure 179/74 06/20/19 18:21 O2 Sat by Pulse Oximetry 98 06/20/19 20:12 Oxygen Delivery Oxygen Delivery Nasal Cannula Shortness of Breath/Dyspnea - [facility] Narrative Medical decision making narrative: CTA of the chest does show multiple nodular opacities with bilateral hilar lymphadenopathy. Chest x-ray shows pulmonary edema with mild elevation of the BNP. Urinalysis positive for urinary tract infection. Patient will be admitted to hospital medicine service for further evaluation and management of congestive heart failure/COPD exacerbation plus UTI. Patient given azithromycin/ceftriaxone in the ED for the management of UTI and COPD. Patient and bedside verbalized understanding and agreement this plan. Patient's hemodynamic stable at the time of admission. - Lab Data Lab results reviewed: Yes I reviewed the patient's lab results. Result diagrams: 06/20/19 09:43 06/20/19 09:43 Lab Results 06/20/19 06/20/19 06/20/19 Range/Units 09:43 09:43 09:43 WBC 9.6 (4.3-11.1) K/mcL RBC 4.08 (3.82-4.97) M/mcL Hgb 13.6 (11.5-15.4) g/dL Hct 40.8 (35.3-44.9) % MCV 100.0 (83.0-100.0) fL MCH 33.3 (28.0-33.3) pg MCHC 33.3 (31.6-35.5) g/dL RDW 14.0 (11.5-14.5) % Plt Count 153 (140-400) K/mcL MPV 12.2 (9.4-12.4) fL Seg Neutrophils % 82.0 % Band Neutrophils % 4.0 (0-4) % Lymphocytes % 6.0 % Monocytes % 6.0 % Basophils % 2.0 % Neutrophils # 8.3 (1.6-8.9) K/mcL Lymphocytes # 0.6 (0.6-4.6) K/mcL Monocytes # 0.6 (0.0-1.3) K/mcL Basophils # 0.2 (0.0-0.2) K/mcL Platelet Estimate Normal (Normal) Sodium 136 (136-145) mEq/L Potassium 4.0 (3.5-5.1) mEq/L Chloride 101 (98-107) mEq/L Carbon Dioxide 23 (23-29) mEq/L BUN 7 L (8-23) mg/dL Creatinine 0.64 (0.60-1.20) mg/dL Est GFR ( Amer) > 60 (> 60) Est GFR (Non-Af Amer) > 60 (> 60) BUN/Creatinine Ratio 11 (6-26) Glucose 109 H (70-105) mg/dL Calculated Osmolality 281 (280-300) Lactic Acid 1.6 (0.5-2.2) mmol/L Calcium 9.5 (8.6-10.3) mg/dL Troponin I 0.03 (< 0.04) ng/mL B-Natriuretic Peptide (Less than 100) pg/mL Urine Color (Yellow) Urine Clarity (Clear) Urine pH (5.0-8.0) pH Units Ur Specific [place] (1.010-1.025) Urine Protein (Neg-Trace) mg/dL Urine Glucose (UA) (Normal) mg/dL Urine Ketones (Negative) mg/dL Urine Blood (Negative) Urine Nitrite (Negative) Urine Bilirubin (Negative) Urine Urobilinogen (Normal) mg/dL Ur Leukocyte Esterase (Negative) Urine Microscopic RBC (0-3) per hpf Urine Microscopic WBC (0-3) per hpf Ur Squamous Epith Cells (None-Few) per lpf Urine Bacteria (None-Few) per hpf Hyaline Casts (None-Few) per lpf Ur Culture Indicated? (NO) 06/20/19 06/20/19 Range/Units 09:43 10:20 WBC (4.3-11.1) K/mcL RBC (3.82-4.97) M/mcL Hgb (11.5-15.4) g/dL Hct (35.3-44.9) % MCV (83.0-100.0) fL MCH (28.0-33.3) pg MCHC (31.6-35.5) g/dL RDW (11.5-14.5) % Plt Count (140-400) K/mcL MPV (9.4-12.4) fL Seg Neutrophils % % Band Neutrophils % (0-4) % Lymphocytes % % Monocytes % % Basophils % % Neutrophils # (1.6-8.9) K/mcL Lymphocytes # (0.6-4.6) K/mcL Monocytes # (0.0-1.3) K/mcL Basophils # (0.0-0.2) K/mcL Platelet Estimate (Normal) Sodium (136-145) mEq/L Potassium (3.5-5.1) mEq/L Chloride (98-107) mEq/L Carbon Dioxide (23-29) mEq/L BUN (8-23) mg/dL Creatinine (0.60-1.20) mg/dL Est GFR ( Amer) (> 60) Est GFR (Non-Af Amer) (> 60) BUN/Creatinine Ratio (6-26) Glucose (70-105) mg/dL Calculated Osmolality (280-300) Lactic Acid (0.5-2.2) mmol/L Calcium (8.6-10.3) mg/dL Troponin I (< 0.04) ng/mL B-Natriuretic Peptide 165 H (Less than 100) pg/mL Urine Color Yellow (Yellow) Urine Clarity Cloudy A (Clear) Urine pH 6.0 (5.0-8.0) pH Units Ur Specific [place] 1.019 (1.010-1.025) Urine Protein 100 H (Neg-Trace) mg/dL Urine Glucose (UA) Normal (Normal) mg/dL Urine Ketones 80 H (Negative) mg/dL Urine Blood Moderate H (Negative) Urine Nitrite Positive A (Negative) Urine Bilirubin Negative (Negative) Urine Urobilinogen Normal (Normal) mg/dL Ur Leukocyte Esterase Negative (Negative) Urine Microscopic RBC 5-15 H (0-3) per hpf Urine Microscopic WBC 5-15 H (0-3) per hpf Ur Squamous Epith Cells Many H (None-Few) per lpf Urine Bacteria Many H (None-Few) per hpf Hyaline Casts None Seen (None-Few) per lpf Ur Culture Indicated? YES A (NO) - Radiology Data Radiology results reviewed: Yes I reviewed the patient's radiology results. Chest X-Ray 06/20/19 09:44 IMPRESSION: 1. Interstitial infiltrates likely representing edema. D/ / Rafita Zapata MD / Rafita Zapata MD Interpreting Provider: Rafita Zapata MD Chest CTA 06/20/19 11:08 IMPRESSION: 1. Negative for acute pulmonary embolism 2. Diffuse nodular infiltrate seen in both lungs with multiple sub solid nodules measuring up to 10 mm in diameter as described. In addition, there is mediastinal and bilateral hilar adenopathy. Although, findings may be related to a diffuse infectious process, based on bench marked follow-up recommendations below a CT is recommended in 3-6 months. RECOMMENDATIONS: Fleischner Society guidelines for follow-up and management of incidentally detected subsolid pulmonary nodules: Multiple subsolid nodules < 6 mm - CT at 3-6 months. If stable, consider CT at 2 and 4 years. > than or equal to 6 mm - [address] at 3-6 months. Subsequent management based on the most suspicious nodule(s). Radiology 2017 http://pubs.[facility]na.org/doi/full/10.1148/[email or web address] D/ / Michael Milton MD / Michael Milton MD Interpreting Provider: Michael Milton MD - EKG Data EKG attestation: Yes I reviewed and interpreted this EKG. EKG results narrative: The patient EKG shows a sinus tachycardia with a heart rate of 12 2 bpm, NM interval of 146 ms, QRS duration of 83 ms, QT/QTc interval of 275/392 ms respectively. There are no significant ST segment elevations, depressions, pathologic Q waves, there are abnormal T-wave inversions noted in the lateral leads which appear consistent with prior EKG. See EKG that was performed today is generally consistent morphology with prior EKG performed on 12/07/2018.
[2019-06-20] MEDS ORDERED: Ipratropium/Albuterol Neb 3 ML IH ONE (09:43)
[2019-06-20] MEDS ORDERED: methylPREDNISolone 125 MG/2 ML VIAL IVP ONE (09:43)
[2019-06-20] MEDS ORDERED: Aspirin 81 MG TAB.CHEW PO SCH (10:00)
[2019-06-20 10:13] LABS: Hematocrit 40.8 % (35.3-44.9); Hemoglobin 13.6 g/dL (11.5-15.4); Mean Corpuscular HGB Conc 33.3 g/dL (31.6-35.5); Mean Corpuscular Hemoglobin 33.3 pg (28.0-33.3); Mean Platelet Volume 12.2 fL (9.4-12.4); Monocytes # 0.6 K/mcL (0.0-1.3); Platelet Count 153 K/mcL (140-400); Red Blood Count 4.08 M/mcL (3.82-4.97); White Blood Count 9.6 K/mcL (4.3-11.1)
[2019-06-20 10:33] LABS: BUN/Creatinine Ratio 11 (6-26); Blood Urea Nitrogen 7 mg/dL (8-23); Calcium 9.5 mg/dL (8.6-10.3); Carbon Dioxide 23 mEq/L (23-29); Chloride 101 mEq/L (98-107); Glucose 109 mg/dL (70-105); Osmolality,Calculated 281 (280-300); Sodium 136 mEq/L (136-145); Troponin I 0.03 ng/mL (< 0.04); eGFR For African Americans > 60 (> 60); eGFR For Non-African Americans > 60 (> 60)
[2019-06-20 10:36] LABS: Basophils # 0.2 K/mcL (0.0-0.2); Lymphocytes # 0.6 K/mcL (0.6-4.6); Neutrophils # 8.3 K/mcL (1.6-8.9)
[2019-06-20 10:37] LABS: Platelet Estimate Normal (Normal)
[2019-06-20 10:43] LABS: Bilirubin,Urine Negative (Negative); Blood,Urine Moderate (Negative); Clarity,Urine Cloudy (Clear); Color,Urine Yellow (Yellow); Glucose,Urine (UA) Normal (Normal); Ketones,Urine 80 mg/dL (Negative); Leukocyte Esterase,Urine Negative (Negative); Nitrite,Urine Positive (Negative); Protein,Urine 100 mg/dL (Neg-Trace); Specific Gravity,Urine 1.019 (1.010-1.025); Urobilinogen,Urine Normal (Normal)
[2019-06-20 10:49] LABS: Bacteria,Urine Many per hpf (None-Few); Hyaline Casts,Urine None Seen per lpf (None-Few); Squamous Epithelial Cell,Urine Many per lpf (None-Few)
[2019-06-20] MEDS ORDERED: Isovue-370 500 ML BOTTLE IVP ONE (11:08)
--- NOTE | 2019-06-20 12:30 | Emergency Department Note ---
Disposition Clinical Impression: Acute exacerbation of chronic obstructive airways disease Congestive heart failure Qualifiers: Heart failure type: unspecified Heart failure chronicity: acute Qualified Code(s): I50.9 - Heart failure, unspecified Disposition: Admitted As Inpatient Condition: Fair Time of Disposition: 20:57 General Adult HPI - General Chief complaint: ED Shortness of Breath/Dyspnea Stated complaint: MISTY Time Seen by Provider: 06/20/19 09:36 Source: patient, family Mode of arrival: ambulatory Limitations: no limitations - History of Present Illness Pain Scale: 5 - Related Data Home Medications Medication Instructions Recorded Confirmed Fish Oil 1,600 mg PO DAILY 06/20/19 06/21/19 Albuterol Sulfate [Proair Hfa] 2 puff IH Q6H PRN 06/21/19 06/21/19 Aspirin [Adult Aspirin Regimen] 81 mg PO DAILY 06/21/19 06/21/19 Atorvastatin Calcium [Lipitor] 80 mg PO DAILY 06/21/19 06/21/19 Lisinopril [Zestril] 20 mg PO DAILY 06/21/19 06/21/19 Loratadine [Claritin] 10 mg PO DAILY 06/21/19 06/21/19 Metoprolol Succinate [Toprol Xl] 25 mg PO DAILY 06/21/19 06/21/19 Umeclidinium Brm/Vilanterol Tr 1 puff IH QAM 06/21/19 06/21/19 [Anoro Ellipta 62.5-25 Mcg INH] Previous Rx's Medication Instructions Recorded Ipratropium/Albuterol Neb [Duoneb] 3 ml IH [id number] #100 inhsol 06/22/19 Levofloxacin [Levaquin] 500 mg PO QDPC #5 tablet 06/22/19 predniSONE [PredniSONE] 10 mg PO AD #25 tablet 06/22/19 Allergies Allergy/AdvReac Type Severity Reaction Status Date / Time aspirin [ASA] Allergy Intermediate Hives Verified 12/07/18 07:25 Penicillins [PCN] Allergy Hives Verified 12/07/18 07:25 lovastatin AdvReac Mild "URINARY Verified 12/07/18 07:25 PROBLEMS" acetaminophen [From Vicodin] AdvReac Itching Verified 12/07/18 07:25 atorvastatin AdvReac Headache Verified 12/07/18 07:25 budesonide [From Symbicort] AdvReac Difficulty Verified 12/07/18 07:25 Breathing citalopram [From Celexa] AdvReac Anxiety Verified 12/07/18 07:25 Formoterol [From Symbicort] AdvReac Difficulty Verified 12/07/18 07:25 Breathing hydrocodone [From Vicodin] AdvReac Itching Verified 12/07/18 07:25 Past Medical History - Past Medical History Medical history: Reports: arthritis, COPD, GERD, hyperlipidemia, hypertension, m yocardial infarction, other Surgical history: Reports: other Psychiatric history: Reports: anxiety, bipolar, depression, PTSD - Social History Smoking Status: Never smoker Smokeless Tobacco Status: No Alcohol use: Reports: occasionally Drug use: Reports: marijuana, IV Drug Use Physical Exam - General Limitations: no limitations General appearance: alert, in distress Course Vital Signs Temperature 99.3 F 06/20/19 09:30 Pulse Rate 123 06/20/19 09:30 Respiratory Rate 24 06/20/19 09:30 Blood Pressure 187/68 06/20/19 09:30 O2 Sat by Pulse Oximetry 94 06/20/19 09:30 Temperature 98.4 F 06/22/19 07:30 Pulse Rate 87 06/22/19 07:30 Respiratory Rate 18 06/22/19 07:30 Blood Pressure 171/78 06/22/19 07:30 O2 Sat by Pulse Oximetry 95 06/22/19 07:30 Oxygen Delivery Oxygen Delivery Nasal Cannula Medical Decision Making - Lab Data Result diagrams: 06/22/19 04:29 06/22/19 04:29 Lab Results 06/20/19 06/20/19 06/20/19 Range/Units 09:43 09:43 09:43 WBC 9.6 (4.3-11.1) K/mcL RBC 4.08 (3.82-4.97) M/mcL Hgb 13.6 (11.5-15.4) g/dL Hct 40.8 (35.3-44.9) % MCV 100.0 (83.0-100.0) fL MCH 33.3 (28.0-33.3) pg MCHC 33.3 (31.6-35.5) g/dL RDW 14.0 (11.5-14.5) % Plt Count 153 (140-400) K/mcL MPV 12.2 (9.4-12.4) fL Seg Neutrophils % 82.0 % Band Neutrophils % 4.0 (0-4) % Lymphocytes % 6.0 % Monocytes % 6.0 % Basophils % 2.0 % Neutrophils # 8.3 (1.6-8.9) K/mcL Lymphocytes # 0.6 (0.6-4.6) K/mcL Monocytes # 0.6 (0.0-1.3) K/mcL Basophils # 0.2 (0.0-0.2) K/mcL Platelet Estimate Normal (Normal) Sodium 136 (136-145) mEq/L Potassium 4.0 (3.5-5.1) mEq/L Chloride 101 (98-107) mEq/L Carbon Dioxide 23 (23-29) mEq/L BUN 7 L (8-23) mg/dL Creatinine 0.64 (0.60-1.20) mg/dL Est GFR ( Amer) > 60 (> 60) Est GFR (Non-Af Amer) > 60 (> 60) BUN/Creatinine Ratio 11 (6-26) Glucose 109 H (70-105) mg/dL Calculated Osmolality 281 (280-300) Lactic Acid 1.6 (0.5-2.2) mmol/L Calcium 9.5 (8.6-10.3) mg/dL Troponin I 0.03 (< 0.04) ng/mL B-Natriuretic Peptide (Less than 100) pg/mL Urine Color (Yellow) Urine Clarity (Clear) Urine pH (5.0-8.0) pH Units Ur Specific [place] (1.010-1.025) Urine Protein (Neg-Trace) mg/dL Urine Glucose (UA) (Normal) mg/dL Urine Ketones (Negative) mg/dL Urine Blood (Negative) Urine Nitrite (Negative) Urine Bilirubin (Negative) Urine Urobilinogen (Normal) mg/dL Ur Leukocyte Esterase (Negative) Urine Microscopic RBC (0-3) per hpf Urine Microscopic WBC (0-3) per hpf Ur Squamous Epith Cells (None-Few) per lpf Urine Bacteria (None-Few) per hpf Hyaline Casts (None-Few) per lpf Ur Culture Indicated? (NO) 06/20/19 06/20/19 Range/Units 09:43 10:20 WBC (4.3-11.1) K/mcL RBC (3.82-4.97) M/mcL Hgb (11.5-15.4) g/dL Hct (35.3-44.9) % MCV (83.0-100.0) fL MCH (28.0-33.3) pg MCHC (31.6-35.5) g/dL RDW (11.5-14.5) % Plt Count (140-400) K/mcL MPV (9.4-12.4) fL Seg Neutrophils % % Band Neutrophils % (0-4) % Lymphocytes % % Monocytes % % Basophils % % Neutrophils # (1.6-8.9) K/mcL Lymphocytes # (0.6-4.6) K/mcL Monocytes # (0.0-1.3) K/mcL Basophils # (0.0-0.2) K/mcL Platelet Estimate (Normal) Sodium (136-145) mEq/L Potassium (3.5-5.1) mEq/L Chloride (98-107) mEq/L Carbon Dioxide (23-29) mEq/L BUN (8-23) mg/dL Creatinine (0.60-1.20) mg/dL Est GFR ( Amer) (> 60) Est GFR (Non-Af Amer) (> 60) BUN/Creatinine Ratio (6-26) Glucose (70-105) mg/dL Calculated Osmolality (280-300) Lactic Acid (0.5-2.2) mmol/L Calcium (8.6-10.3) mg/dL Troponin I (< 0.04) ng/mL B-Natriuretic Peptide 165 H (Less than 100) pg/mL Urine Color Yellow (Yellow) Urine Clarity Cloudy A (Clear) Urine pH 6.0 (5.0-8.0) pH Units Ur Specific [place] 1.019 (1.010-1.025) Urine Protein 100 H (Neg-Trace) mg/dL Urine Glucose (UA) Normal (Normal) mg/dL Urine Ketones 80 H (Negative) mg/dL Urine Blood Moderate H (Negative) Urine Nitrite Positive A (Negative) Urine Bilirubin Negative (Negative) Urine Urobilinogen Normal (Normal) mg/dL Ur Leukocyte Esterase Negative (Negative) Urine Microscopic RBC 5-15 H (0-3) per hpf Urine Microscopic WBC 5-15 H (0-3) per hpf Ur Squamous Epith Cells Many H (None-Few) per lpf Urine Bacteria Many H (None-Few) per hpf Hyaline Casts None Seen (None-Few) per lpf Ur Culture Indicated? YES A (NO) Attestation Statement - Attestation Attestation: I examined this patient and my medical decision-making was reviewed with the Resident Physician. I agree with the documented findings, disposition and treatment plan as described except to the extent set forth below. Patient is 59-year-old female with prior history of COPD and cardiac history that presents to the emergency department with chief complaint of shortness of breath. Physical exam patient is to Make an tachycardic and wheezing bilaterally. Medical decision management the patient was treated with IV steroids and breathing treatments in the emergency department due to the patient still being persistently tach cardiac the patient underwent CTA of the chest that shows no evidence of pulmonary embolism did show some mild lymphadenopathy present. Case was discussed with the hospitalist the patient will be admitted to the hospital I personally supervised and was present for the thakur/critical portions of the following procedures completed by the resident:EKG.
[2019-06-20] MEDS ORDERED: Azithromycin 500 MG in D5% in Water 250 ML IVPB ONE (14:02)
[2019-06-20] MEDS ORDERED: cefTRIAXone 1,000 MG in 0.9 % Sodium Chloride Mini Bag 100 ML IVPB ONE (14:02)
[2019-06-20] MEDS ORDERED: Ondansetron 4 MG/2 ML VIAL IVP PRN (15:19)
[2019-06-20] MEDS ORDERED: Naloxone 0.4 MG/ML INJ IVP PRN (15:19)
--- NOTE | 2019-06-20 15:35 | Internal Med History&Physical ---
Date of Encounter: 06/20/19 Time of Encounter: 15:34 Internal Medicine - H&P: HPI Chief complaint: SOB Admitted From: Emergency Dept Plans for Post Hospital Care: Home History of present illness: Ms. Lane is a 59 year old female with history of triple bypass open-heart surgery 12/07/2018 anxiety panic disorder depression COPD presented to [facility] ED with 3 day history of progressively worsening shortness of breath as well as green sputum production. Denies any fevers chills nausea vomiting however has been experiencing headache as well. Patient states her has been sick with bronchitis denies any other sick contacts. On presentation to the ER patient was in some respiratory distress with tachycardia heart rate 130s underwent CTA which was negative for any pulmonary embolism-chest x-ray interstitial infiltrates likely representing edema. Patient required oxygen supplementation as well as multiple breathing treatments. Eventually her respiratory state did not improve. Patient states that 3 months ago she did lose her insurance and has not been taking her home medications. Patient did quit smoking in November however continues to smoke marijuana- she last smoked 3 days ago. Patient was admitted for further workup and evaluation of COPD exacerbation. Currently patient does not appear to be in any respiratory distress she states this feels much better and is able to catch her breath she d oes have scattered wheezes throughout lung guido and is requiring oxygen supplementation. I discussed treatment plan with the patient verbalized understanding Past Med Surg Social Fam HX - Past Medical History Medical history: arthritis, COPD, GERD, hyperlipidemia, hypertension, myocardial infarction, other Additional medical history: acid reflux, hx of IV drug use, blood thinner Psychiatric history: anxiety, bipolar, depression, PTSD - Past Surgical History Surgical History: other Additional surgical history: tonsils, tubal, L hip, L TKR - Social History Smoking Status: Never smoker Smokeless Tobacco Status: No Alcohol use: occasionally Drug use: marijuana, IV Drug Use - Family History Grandfather Hx Family Cardiac Disorders: Yes Mother Hx Family Medical Disorders: Yes (parkinson's, mental illness) Internal Medicine - H&P: Meds Aspirin [Lo-Dose Aspirin EC] 81 mg PO DAILY 06/20/19 [History] Fish Oil 1,600 mg PO DAILY 06/20/19 [History] Allergy/AdvReac Type Severity Reaction Status Date / Time aspirin [ASA] Allergy Intermediate Hives Verified 12/07/18 07:25 Penicillins [PCN] Allergy Hives Verified 12/07/18 07:25 lovastatin AdvReac Mild "URINARY Verified 12/07/18 07:25 PROBLEMS" acetaminophen [From Vicodin] AdvReac Itching Verified 12/07/18 07:25 atorvastatin AdvReac Headache Verified 12/07/18 07:25 budesonide [From Symbicort] AdvReac Difficulty Verified 12/07/18 07:25 Breathing citalopram [From Celexa] AdvReac Anxiety Verified 12/07/18 07:25 Formoterol [From Symbicort] AdvReac Difficulty Verified 12/07/18 07:25 Breathing hydrocodone [From Vicodin] AdvReac Itching Verified 12/07/18 07:25 All Systems PM: A 10-system review of systems was performed and is negative for pertinent findings except as documented above in the HPI. - Constitutional Constitutional: weight loss - EENT Eyes: no change in vision, no discharge, no pain, no photophobia Ears: no ear discharge, no ear pain, no tinnitus Nose, mouth and throat: no dysphagia, no nasal discharge, no neck pain, no sore throat - Cardiovascular Cardiovascular ROS IM: dyspnea, dyspnea on exertion, no chest pain, no diaphoresis, no lightheadedness, no palpitations, no syncope - Respiratory Respiratory: cough, dyspnea, dyspnea on exertion, excessive phlegm production, change in phlegm color - Gastrointestinal Gastrointestinal: no abdominal pain, no diarrhea, no hematemesis, no hematochezia, no melena, no nausea, no vomiting - Genitourinary Genitourinary: no change in urinary stream, no dysuria, no flank pain, no hematuria - Musculoskeletal Musculoskeletal ROS IM: no numbness, no tingling - Integumentary Integumentary IM: no rash, no unusual bruising - Neurological Neurological ROS: no confusion, no convulsions, no focal weakness, no numbness, no tingling, no tremor(s) - Hematologic/Lymphatic Hematologic/Lymphatic: no easy bruising - Constitutional Vitals: Temp Pulse Resp BP Pulse Ox 98.2 F 77 20 167/69 94 06/20/19 15:04 06/20/19 15:04 06/20/19 15:04 06/20/19 15:04 06/20/19 15:04 General appearance: Present: cachectic, A&O X 3 Exam: . - Head Head exam: Present: atraumatic, normocephalic - Eye Eye exam: Present: PERRL, conjuntiva pink, sclera anicteric Pupils: Present: PERRL - Neck Neck exam general surgery: Present: supple, trachea midline. Absent: lymphadenopathy - Respiratory Respiratory exam: Present: wheezes. Absent: accessory muscle use, rales, rhonchi - Cardiovascular Cardiovascular exam: Present: RRR, +S1, +S2. Absent: diastolic murmur, gallop, rubs, systolic murmur - GI/Abdominal GI/Abdominal exam: Present: normal bowel sounds, soft, no peritoneal signs. Absent: distended, tenderness - Extremities Exam Extremities exam: Present: warm, radial pulses palpable and symmetrical. Absent: calf tenderness, cyanotic, pedal edema - Neurological Exam Neurological exam: Present: CN II-XII intact, oriented X3, no focal deficits. Absent: pronater drift, facial droop, speech deficit - Skin Skin exam: Present: dry, intact Internal Med - H&P Results - Labs CBC & Chem 7: 06/20/19 09:43 06/20/19 09:43 Labs: Short CBC 06/20/19 Range/Units 09:43 WBC 9.6 (4.3-11.1) K/mcL Hgb 13.6 (11.5-15.4) g/dL Hct 40.8 (35.3-44.9) % Plt Count 153 (140-400) K/mcL Neutrophils # 8.3 (1.6-8.9) K/mcL BMP 06/20/19 09:43 Sodium 136 Potassium 4.0 Chloride 101 Carbon Dioxide 23 BUN 7 L Creatinine 0.64 Glucose 109 H Calcium 9.5 Cardiac Enzymes 06/20/19 Range/Units 09:43 Troponin I 0.03 (< 0.04) ng/mL Urine 06/20/19 Range/Units 10:20 Urine Color Yellow (Yellow) Urine Clarity Cloudy A (Clear) Urine pH 6.0 (5.0-8.0) pH Units Ur Specific [place] 1.019 (1.010-1.025) Urine Protein 100 H (Neg-Trace) mg/dL Urine Glucose (UA) Normal (Normal) mg/dL - Impressions ITS Impressions Chest X-Ray 06/20/19 09:44 IMPRESSION: 1. Interstitial infiltrates likely representing edema. D/ / Rafita Zapata MD / Rafita Zapata MD Interpreting Provider: Rafita Zapata MD Chest CTA 06/20/19 11:08 IMPRESSION: 1. Negative for acute pulmonary embolism 2. Diffuse nodular infiltrate seen in both lungs with multiple sub solid nodules measuring up to 10 mm in diameter as described. In addition, there is mediastinal and bilateral hilar adenopathy. Although, findings may be related to a diffuse infectious process, based on bench marked follow-up recommendations below a CT is recommended in 3-6 months. RECOMMENDATIONS: Fleischner Society guidelines for follow-up and management of incidentally detected subsolid pulmonary nodules: Multiple subsolid nodules < 6 mm - CT at 3-6 months. If stable, consider CT at 2 and 4 years. > than or equal to 6 mm - CT at 3-6 months. Subsequent management based on the most suspicious nodule(s). Radiology 2017 http://pubs.rsna.org/doi/full/10.1148/radiol.[email or web address] D/ / Michael Milton MD / Michael Milton MD Interpreting Provider: Michael Milton MD - Assessment and Plan (1) COPD exacerbation Current Visit: Yes Status: Acute Assessment and plan: Patient was a previous smoker and just quit November of this year also continues to smoke marijuana she last smoked 3 days ago. Over the past 3 days she is experiencing progressively worsening shortness of breath on exertion as well as cough with green sputum production. Denies any fevers chills nausea vomiting or diarrhea. States her has been ill as well and was recently treated for bronchitis. She has a history of COPD and has not been using her inhalers at home due to financial difficulties and currently does not have any insurance. She required oxygen supplementation on presentation to the ER and multiple breathing treatments. Continues with oxygen supplementation we will maintain SPO2 greater than 90%-A she may require 6 minute walk test prior to discharge for oxygen qualification Continue with bronchodilators Continue with steroids-patient continues to have wheezing throughout lung guido Obtain sputum culture (2) UTI (urinary tract infection) Current Visit: Yes Status: Acute Assessment and plan: Urinalysis is indicative of UTI - sent for culture- cont with Rocephin Qualifiers: Urinary tract infection type: acute cystitis Hematuria presence: without hematuria Qualified Code(s): N30.00 - Acute cystitis without hematuria (3) CAD (coronary artery disease) Current Visit: No Status: Chronic Assessment and plan: 1 history of CAD underwent cardiac catheterization 11/29/2018 which did reveal severe 3 vessel CAD and LVEF 35% patient had 50% distal left main lesion and 60% proximal LAD lesion and 80% proximal LCx lesion and 99% mid RCA lesion. She did undergo a elective CABG 3 on 11/29/2018-patient states for the past couple months she has not been able to afford her medications and has not been taking her home medicines No chest pain at this time student services coordinator has been consulted and we will clarify medication list and resume patient's home medicines Continue with aspirin and fish oil Qualifiers: Coronary Disease-Associated Artery/Lesion type: [place] artery [place] vs. transplanted heart: [place] heart Associated angina: without angina Qualified Code(s): I25.10 - Atherosclerotic heart disease of [place] coronary artery without angina pectoris (4) Economic hardship Current Visit: Yes Status: Acute Assessment and plan: Disposition states that she has not been able to afford her medications and has not been taking them for the past 3 months. Currently only taking aspirin and fish oil. We will consult social media campaign manager and obtain list of previous medications (5) Hypertension Current Visit: No Status: Chronic Qualifiers: Hypertension type: essential hypertension Qualified Code(s): I10 - Essential (primary) hypertension - Time Spent With Patient Total time spent is greater than 50% in coordination of care (as documented) at patient's floor/unit and/or counseling patient:
[2019-06-20] MEDS ORDERED: methylPREDNISolone 125 MG/2 ML VIAL IVP SCH (16:00)
[2019-06-20] MEDS: methylPREDNISolone 125 MG/2 ML VIAL IVP SCH (18:03)
[2019-06-20] MEDS: Ipratropium/Albuterol Neb 3 ML IH SCH ×3 (19:28→23:57)
[2019-06-20] MEDS: traZODone 50 MG TABLET PO PRN (21:30)
[2019-06-21] MEDS: methylPREDNISolone 125 MG/2 ML VIAL IVP SCH ×2 (02:48→09:08)
[2019-06-21 04:04] LABS: Hematocrit 40.4 % (35.3-44.9); Mean Corpuscular HGB Conc 34.7 g/dL (31.6-35.5); Mean Corpuscular Hemoglobin 33.2 pg (28.0-33.3); Mean Corpuscular Volume 95.7 fL (83.0-100.0); Platelet Count 174 K/mcL (140-400); Red Blood Count 4.22 M/mcL (3.82-4.97); Red Cell Distribution Width 13.7 % (11.5-14.5)
[2019-06-21] MEDS: Ipratropium/Albuterol Neb 3 ML IH SCH ×6 (04:11→23:55)
[2019-06-21 04:25] LABS: BUN/Creatinine Ratio 18 (6-26); Blood Urea Nitrogen 10 mg/dL (8-23); Calcium 9.8 mg/dL (8.6-10.3); Carbon Dioxide 24 mEq/L (23-29); Chloride 106 mEq/L (98-107); Glucose 146 mg/dL (70-105); Magnesium 2.3 mg/dL (1.6-2.6); Osmolality,Calculated 286 (280-300); Potassium 3.5 mEq/L (3.5-5.1); Sodium 137 mEq/L (136-145); eGFR For African Americans > 60 (> 60); eGFR For Non-African Americans > 60 (> 60)
[2019-06-21 04:29] LABS: Lymphocytes # 0.4 K/mcL (0.6-4.6); Monocytes # 0.4 K/mcL (0.0-1.3); Neutrophils # 8.3 K/mcL (1.6-8.9); Platelet Estimate Normal (Normal); Toxic Granulation Present (Not Present)
[2019-06-21] MEDS: *HR* Enoxaparin 40 MG/0.4 ML SYRINGE SQ SCH (06:06)
[2019-06-21] MEDS: cefTRIAXone 1,000 MG in Water for inj. (sterile) 10 ML IVP SCH (09:09)
[2019-06-21] MEDS: Aspirin Enteric Coated 81 MG Tablet PO SCH (09:09)
[2019-06-21] MEDS: Azithromycin 500 MG in D5% in Water 250 ML IVPB SCH (09:10)
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
[2019-06-21] MEDS: Loratadine 10 MG TABLET PO SCH (14:35)
[2019-06-21] MEDS: Lisinopril 20 MG TABLET PO SCH (14:35)
[2019-06-21] MEDS: Metoprolol XL (24 HR) Succ 25 MG TAB.ER.24H PO SCH (14:36)
[2019-06-21] MEDS: traZODone 50 MG TABLET PO PRN (21:48)
[2019-06-22] MEDS: Ipratropium/Albuterol Neb 3 ML IH SCH ×3 (03:39→10:50)
[2019-06-22 04:59] LABS: Basophils % 0.2 %; Hematocrit 42.8 % (35.3-44.9); Hemoglobin 14.3 g/dL (11.5-15.4); Immature Granulocytes % 0.7 % (0-4); Lymphocytes # 0.8 K/mcL (0.6-4.6); Lymphocytes % 9.1 %; Mean Corpuscular HGB Conc 33.4 g/dL (31.6-35.5); Mean Corpuscular Hemoglobin 33.1 pg (28.0-33.3); Mean Corpuscular Volume 99.1 fL (83.0-100.0); Mean Platelet Volume 11.9 fL (9.4-12.4); Monocytes # 0.5 K/mcL (0.0-1.3); Monocytes % 5.3 %; Neutrophils # 7.5 K/mcL (1.6-8.9); Platelet Count 193 K/mcL (140-400); Red Blood Count 4.32 M/mcL (3.82-4.97); Red Cell Distribution Width 14.2 % (11.5-14.5); Segmented Neutrophils % 84.7 %; White Blood Count 8.9 K/mcL (4.3-11.1)
[2019-06-22 05:23] LABS: BUN/Creatinine Ratio 26 (6-26); Blood Urea Nitrogen 18 mg/dL (8-23); Calcium 9.9 mg/dL (8.6-10.3); Carbon Dioxide 27 mEq/L (23-29); Chloride 103 mEq/L (98-107); Glucose 131 mg/dL (70-105); Magnesium 2.3 mg/dL (1.6-2.6); Osmolality,Calculated 292 (280-300); Potassium 3.5 mEq/L (3.5-5.1); Sodium 139 mEq/L (136-145); eGFR For African Americans > 60 (> 60); eGFR For Non-African Americans > 60 (> 60)
[2019-06-22] MEDS: *HR* Enoxaparin 40 MG/0.4 ML SYRINGE SQ SCH (05:55)
[2019-06-22] MEDS: Azithromycin 500 MG in D5% in Water 250 ML IVPB SCH (07:35)
[2019-06-22] MEDS: cefTRIAXone 1,000 MG in Water for inj. (sterile) 10 ML IVP SCH (07:35)
[2019-06-22] MEDS: Aspirin Enteric Coated 81 MG Tablet PO SCH (07:36)
[2019-06-22] MEDS: Loratadine 10 MG TABLET PO SCH (07:36)
[2019-06-22] MEDS: Lisinopril 20 MG TABLET PO SCH (07:36)
[2019-06-22] MEDS: Metoprolol XL (24 HR) Succ 25 MG TAB.ER.24H PO SCH (07:36)
[2019-06-22 08:07] VITALS: BP 171/78
[2019-06-22] MEDS ORDERED: predniSONE 20 MG TABLET PO SCH (09:00)
--- NOTE | 2019-06-22 09:17 | Discharge Summary ---
- NOTES TO OUTPATIENT PROVIDER Notes to Outpatient Provider: Posthospital discharge for COPD exacerbation and UTI urine culture was positive for gram-negative rods with sensitivity pending however patient requested to be discharged today because her favorite niece birthday republican. Please follow up on sensitivities Orders not resulted at time of discharge: Pending orders 06/20/19 10:20 Culture,Urine [] Stat 06/20/19 18:18 Culture,Sputum with Gram Stain [] Routine Date of Encounter: 06/22/19 Time of Encounter: 08:30 - Discharge Diagnosis (1) COPD exacerbation Priority: Primary Status: Acute Assessment and Plan: will dc on prednisone taper will continue DuoNeb this is her first exacerbation discussed with patient trigger avoidance. Admits to being compliant with her home inhalers. She has quit tobacco use. She will benefit from a home nebulizer machine. Case management has been consulted to help (2) UTI (urinary tract infection) Priority: Primary Status: Acute Assessment and Plan: Urinalysis is indicative of UTI - sent for [id number] rods sensitivity pending however patient is requesting discharge because her favorite niece birthdays today and she would like to be home to celebrate with her niece. We will discharge home on levofloxacin for 5 days which should also help with her AECOPD Qualifiers: Urinary tract infection type: acute cystitis Hematuria presence: without hematuria Qualified Code(s): N30.00 - Acute cystitis without hematuria (3) Hypertension Priority: Secondary Status: Chronic Assessment and Plan: We will resume home medications Toprol and lisinopril Qualifiers: Hypertension type: essential hypertension Qualified Code(s): I10 - Essential (primary) hypertension (4) CAD (coronary artery disease) Priority: Secondary Status: Chronic Assessment and Plan: Coronary denies chest pain on metoprolol high intensity starting with atorvastatin, SUMANTH inhibitor with lisinopril and aspirin Qualifiers: Coronary Disease-Associated Artery/Lesion type: [place] artery [place] vs. transplanted heart: [place] heart Associated angina: without angina Qualified Code(s): I25.10 - Atherosclerotic heart disease of [place] coronary artery without angina pectoris (5) Economic hardship Priority: Secondary Status: Acute Assessment and Plan: Disposition states that she has not been able to afford her medications and has not been taking them for the past 3 months. Currently only taking aspirin and fish oil. We will consult social group worker and obtain list of previous medications Hospital course: Ms. Lane is a 59 year old female was hospitalized for COPD exacerbation which was managed with steroids and neb treatments she will be sent home on a prednisone taper and a prescription for nebulizer. She was also noted to have urinary tract infection a urine culture was positive for gram-negative rods. Patient is requesting discharge today because her favorite niece's birthday as such she will be sent home on levofloxacin for 5 days course since this will help also with her AECOPD since patient is financially constrained. She said that she lost Medicaid because her new made $30 too much a year to qualify Discharge discussed with: patient, nurse - Time Spent with Patient Total time spent providing and/or coordinating discharge services: 36 mins Specific discharge activities: Please take all medications as prescribed. Keep your follow-up appointment - Discharge Medications Prescriptions: New Ipratropium/Albuterol Neb [Duoneb] 3 ml IH [id number] #100 inhsol Levofloxacin [Levaquin] 500 mg PO QDPC #5 tablet predniSONE [PredniSONE] 10 mg PO AD #25 tablet Continued Fish Oil 1,600 mg PO DAILY Aspirin [Adult Aspirin Regimen] 81 mg PO DAILY Albuterol Sulfate [Proair Hfa] 2 puff IH Q6H PRN PRN Reason: Shortness Of Breath Lisinopril [Zestril] 20 mg PO DAILY Loratadine [Claritin] 10 mg PO DAILY Atorvastatin Calcium [Lipitor] 80 mg PO DAILY Metoprolol Succinate [Toprol Xl] 25 mg PO DAILY Umeclidinium Brm/Vilanterol Tr [Anoro Ellipta 62.5-25 Mcg INH] 1 puff IH QAM Home Medications: Fish Oil 1,600 mg PO DAILY 06/20/19 [History] Albuterol Sulfate [Proair Hfa] 2 puff IH Q6H PRN 06/21/19 [History] Aspirin [Adult Aspirin Regimen] 81 mg PO DAILY 06/21/19 [History] Atorvastatin Calcium [Lipitor] 80 mg PO DAILY 06/21/19 [History] Lisinopril [Zestril] 20 mg PO DAILY 06/21/19 [History] Loratadine [Claritin] 10 mg PO DAILY 06/21/19 [History] Metoprolol Succinate [Toprol Xl] 25 mg PO DAILY 06/21/19 [History] Umeclidinium Brm/Vilanterol Tr [Anoro Ellipta 62.5-25 Mcg INH] 1 puff IH QAM 06/21/19 [History] Ipratropium/Albuterol Neb [Duoneb] 3 ml IH [id number] #100 inhsol 06/22/19 [Rx] Levofloxacin [Levaquin] 500 mg PO QDPC #5 tablet 06/22/19 [Rx] predniSONE [PredniSONE] 10 mg PO AD #25 tablet 06/22/19 [Rx] Allergies/Adverse Reactions: Allergy/AdvReac Type Severity Reaction Status Date / Time aspirin [ASA] Allergy Intermediate Hives Verified 12/07/18 07:25 Penicillins [PCN] Allergy Hives Verified 12/07/18 07:25 lovastatin AdvReac Mild "URINARY Verified 12/07/18 07:25 PROBLEMS" acetaminophen [From Vicodin] AdvReac Itching Verified 12/07/18 07:25 atorvastatin AdvReac Headache Verified 12/07/18 07:25 budesonide [From Symbicort] AdvReac Difficulty Verified 12/07/18 07:25 Breathing citalopram [From Celexa] AdvReac Anxiety Verified 12/07/18 07:25 Formoterol [From Symbicort] AdvReac Difficulty Verified 12/07/18 07:25 Breathing hydrocodone [From Vicodin] AdvReac Itching Verified 12/07/18 07:25 Date of admission: 06/20/19 14:23 Primary care physician: Nancy Beck CNP Consults: 06/20/19 16:36 Consult to Rough Rounder Machine [CONS] Routine Reason for SW Consult: unable to afford medciations Discharging clinician: Nkechi Anglin - Constitutional Vitals: Temp Pulse Resp BP Pulse Ox 98.4 F 87 18 171/78 95 06/22/19 07:30 06/22/19 07:30 06/22/19 07:30 06/22/19 07:30 06/22/19 07:30 General appearance: Present: cachectic, A&O X 3 Exam: GEN: NAD, A&O x 3, Pleasant and conversant SKIN: [place] warm acyanotic not jaundice HEART: RRR, no murmurs LUNGS: CTA minimal wheeze no crackles, overall non labored ABDOMEN; Soft, non tender or distended, BS x 4 normactive EXT: No LE edema, Pedal pulses 1+, radial pulses 2+ PSYCH: Mood and affect is appropriate - Patient Status Disposition: Home Health Service Condition: Fair Overall status at discharge: patient is back to baseline - Discharge Instructions Follow Up With: Nancy Beck CNP [Primary Care Provider] - Forms: ED Satisfaction Letter - Diet and Activity Activity: resume usual activities as tolerated Diet: low fat, low cholesterol, low salt diet
--- NOTE | 2019-06-22 09:40 | Physician Discharge Referral ---
Home Health/Hosp Referral Info Transfer to: Home Health Provider in Charge Post Discharge: PCP - Diagnosis (1) COPD exacerbation Priority: Primary Status: Acute (2) UTI (urinary tract infection) Priority: Primary Status: Acute (3) Hypertension Priority: Secondary Status: Chronic (4) CAD (coronary artery disease) Priority: Secondary Status: Chronic (5) Economic hardship Priority: Secondary Status: Acute - Respiratory Orders Smoking Cessation: Smoking cessation has been advised. For more information, call the [place] Tobacco Quit Line at 1-741-NNTU-NOW. - Diet/Nutrition Diet/Nutrition Orders: Cardiac - Activity Activity Orders: Ambulate - Services Needed Following services are medically necessary services: Home Health Aide - Transfer Medications Prescriptions: Ipratropium/Albuterol Neb [Duoneb] 3 ml IH [id number] #100 inhsol Levofloxacin [Levaquin] 500 mg PO QDPC #5 tablet predniSONE [PredniSONE] 10 mg PO AD #25 tablet Home Medications: Fish Oil 1,600 mg PO DAILY 06/20/19 [History] Albuterol Sulfate [Proair Hfa] 2 puff IH Q6H PRN 06/21/19 [History] Aspirin [Adult Aspirin Regimen] 81 mg PO DAILY 06/21/19 [History] Atorvastatin Calcium [Lipitor] 80 mg PO DAILY 06/21/19 [History] Lisinopril [Zestril] 20 mg PO DAILY 06/21/19 [History] Loratadine [Claritin] 10 mg PO DAILY 06/21/19 [History] Metoprolol Succinate [Toprol Xl] 25 mg PO DAILY 06/21/19 [History] Umeclidinium Brm/Vilanterol Tr [Anoro Ellipta 62.5-25 Mcg INH] 1 puff IH QAM 06/21/19 [History] Ipratropium/Albuterol Neb [Duoneb] 3 ml IH [id number] #100 inhsol 06/22/19 [Rx] Levofloxacin [Levaquin] 500 mg PO QDPC #5 tablet 06/22/19 [Rx] predniSONE [PredniSONE] 10 mg PO AD #25 tablet 06/22/19 [Rx] Allergies/Adverse Reactions: Allergy/AdvReac Type Severity Reaction Status Date / Time aspirin [ASA] Allergy Intermediate Hives Verified 12/07/18 07:25 Penicillins [PCN] Allergy Hives Verified 12/07/18 07:25 lovastatin AdvReac Mild "URINARY Verified 12/07/18 07:25 PROBLEMS" acetaminophen [From Vicodin] AdvReac Itching Verified 12/07/18 07:25 atorvastatin AdvReac Headache Verified 12/07/18 07:25 budesonide [From Symbicort] AdvReac Difficulty Verified 12/07/18 07:25 Breathing citalopram [From Celexa] AdvReac Anxiety Verified 12/07/18 07:25 Formoterol [From Symbicort] AdvReac Difficulty Verified 12/07/18 07:25 Breathing hydrocodone [From Vicodin] AdvReac Itching Verified 12/07/18 07:25 Certification: Further, I certify that my clinical findings support that this patient is homebound (i.e. absences from home require considerable and taxing effort and are for medical reasons or [facility] [facility] or infrequently or short duration when for other reasons) because: Homebound Reason: Patient requires assistance of a person or device to safely leave home Attestation: My signature below is to certify that this patient is under my care and that I, or nurse practitioner, or a physician's wardrobe assistant working with me, has a [id number] encounter with this patient.
--- NOTE | 2019-06-25 12:22 | Electrocardiograph Report ---
[address] [place], [place] [address] Test Date: 2019-06-20 Pat Name: Monica Lane Department: EXAM9 Room: [facility] Gender: F Paradi Tender: : 1960 Requested By: Fahad Santana Order Number: [id number] Reading MD: Josias Venegas Measurements Intervals [place] Rate: 122 P: 80 VA: 146 QRS: 63 QRSD: 83 T: 221 QT: 275 QTc: 392 Interpretive Statements Sinus tachycardia LAE, consider biatrial enlargement Probable LVH with secondary repol abnrm BASELINE [employer]IFACT Electronically Signed On 06-25-2019 12:20:33 EDT by Josias Venegas
== END 2019-06-22 12:02 | disposition home health service (06) ==
LOC: EMEROOARM 09:24 → 3NENU 09:24 → SUATTDRO 14:23 → 3NENU 14:50
PROVIDERS: ADMIT Student in an Organized Health Care Education/Training Program; ATTEND Pharmacist